=== PATIENT | female | born 1945 | race Caucasian/White ===

== ENCOUNTER 2018-01-16 20:01 | Inpatient (IN) | payer OTHER ==
[2018-01-16 20:05] VITALS: BMI 25.6
[2018-01-16 20:30] LABS: BASO % 0.5 % (0.0-2.0); EOS % 0.6 % (0.0-4.0); HEMOGLOBIN 14.5 g/dL (12.0-16.0); LYMPH # 1.3 K/uL (1.0-4.3); LYMPH % 17.6 % (20.0-40.0); MEAN CELL VOLUME 83.9 fl (81.0-99.0); MEAN CORPUSCULAR HEMOGLOBIN 28.2 pg (27.0-31.0); MEAN CORPUSCULAR HGB CONC 33.6 g/dL (33.0-37.0); MONO # 0.5 K/uL (0.0-0.8); MONO % 6.1 % (0.0-10.0); NEUT # 5.7 K/uL (1.8-7.0); NEUT % 75.2 % (50.0-75.0); RBC 5.12 Mil/uL (3.80-5.20); RED CELL DISTRIBUTION WIDTH 14.5 % (11.5-14.5); WHITE BLOOD COUNT 7.5 K/uL (4.8-10.8)
[2018-01-16 20:40] LABS: BLOOD UREA NITROGEN 14 mg/dl (7-17); CALCIUM 9.5 mg/dL (8.4-10.2); GFR AFRICAN-AMERICAN > 60; GFR NON-AFRICAN AMERICAN > 60
[2018-01-16 20:54] LABS: PROTHROMBIN TIME 11.3 Seconds (9.8-13.1)
--- NOTE | 2018-01-16 21:17 | ED PDOC ---
HPI: Trauma/Fall - HPI Time Seen by Provider: 01/16/18 20:03 Chief Complaint (Nursing): Trauma Chief Complaint (Provider): Fall History Per: Patient History/Exam Limitations: no limitations Injury Occurred (Timing): Just Before Arrival Associated Symptoms: denies: LOC Additional Complaint(s): 72yo female with history of dementia and hypertension, not currently on medication, presents to ED for evaluation s/p a mechanical fall. Patient states she was walking on the street, tripped and fell, landing on her left side and injuring her left hip. She denies any head injury or loss of consciousness. Past Medical History Reviewed: Historical Data, Nursing Documentation, Vital Signs Vital Signs: Last Vital Signs Temp 98.5 F 01/17/18 00:35 Pulse 90 01/17/18 03:15 Resp 18 01/17/18 03:15 BP 123/72 01/17/18 00:35 Pulse Ox 96 01/17/18 03:15 - Medical History PMH: Anxiety, HTN, Seizures Denies: Diabetes, Hepatitis, HIV, Chronic Kidney Disease, Sexually Transmitted Disease - Surgical History Surgical History: No Surg Hx - Family History Family History: States: No Known Family Hx - Immunization History Hx Tetanus Toxoid Vaccination: No Hx Influenza Vaccination: No Hx Pneumococcal Vaccination: No - Home Medications Home Medications: Ambulatory Orders Medication Instructions Recorded Amlodipine Besylate [Norvasc] 5 mg PO DAILY #30 tab 07/11/14 Aspirin [Ecotrin] 81 mg PO DAILY #30 ect 07/25/14 Venlafaxine [Effexor-XR] 37.5 mg PO BID #60 cer 08/20/14 - Allergies Allergies/Adverse Reactions: Allergies Allergy/AdvReac Type Severity Reaction Status Date / Time No Known Allergies Allergy Verified 07/09/14 22:10 Review of Systems ROS Statement: Except As Marked, All Systems Reviewed And Found Negative Musculoskeletal: Positive for: Other (left hip pain) Neurological: Negative for: Other (head injury, loss of consciousness) Physical Exam - Reviewed Nursing Documentation Reviewed: Yes Vital Signs Reviewed: Yes - Physical Exam Appears: Positive for: Non-toxic, In Acute Distress Head Exam: Positive for: ATRAUMATIC, NORMAL INSPECTION, NORMOCEPHALIC Skin: Positive for: Normal Color Eye Exam: Positive for: Normal appearance Neck: Positive for: Supple Cardiovascular/Chest: Positive for: Regular Rate, Rhythm Respiratory: Positive for: Normal Breath Sounds. Negative for: Respiratory Distress Pulses-Dorsalis Pedis (L): 1+ (diminished pulse in left lower extremity; able to hear pulse with doppler) Extremity: Positive for: Deformity (left leg shortnes and externally rotated. obvious deformity of left upper thigh. ), Other (no pelvic laxity) Neurologic/Psych: Positive for: Alert, Oriented (x 3), Other (patient able to wiggle toes and push down with her left foot; sensations intact in left lower extremity). Negative for: Motor/Sensory Deficits - Laboratory Results Result Diagrams: 01/16/18 20:17 01/16/18 20:17 - ECG O2 Sat by Pulse Oximetry: 97 (RA) Pulse Ox Interpretation: Normal Medical Decision Making Medical Decision Making: Impression: Hip fracture Plan: -- XR Hip -- XR Left Femur -- Chest x-ray -- Labs -- Morphine 2mg IVP Time: [address] Olson, orthopedist concrete bucket hooker who is requesting a CT of the hip. Patient admitted to FP service under Dr. Manriquez. Instructed resident to place [place] Traction on floor as we are not able to place traction on ED beds. Pt. stable upon admission. Scribe Attestation: Documented by Jojo Sosa acting as a scribe for Juwan Gardner MD. Provider Attestation: All medical record entries made by the Scribe were at my direction and personally dictated by me. I have reviewed the chart and agree that the record accurately reflects my personal performance of the history, physical exam, medical decision making, and the department course for this patient. I have also personally directed, reviewed, and agree with the discharge instructions and disposition. Disposition - Clinical Impression Clinical Impression: Hip fracture - Disposition Disposition Time: 21:29 Condition: STABLE
[2018-01-16 21:38] LABS: URINE BACTERIA RARE (<OCC); URINE BILIRUBIN NEGATIVE (NEGATIVE); URINE BLOOD NEGATIVE (NEGATIVE); URINE CLARITY CLOUDY (Clear); URINE COLOR AMBER (YELLOW); URINE GLUCOSE (UA) 50 mg/dL (Normal); URINE LEUKOCYTE ESTERASE NEG Leu/uL (Negative); URINE PROTEIN NEGATIVE (NEGATIVE); URINE UROBILINOGEN 0.2-1.0 mg/dL (0.2-1.0)
--- NOTE | 2018-01-16 22:49 | CP.PCM.HP ---
Addendum entered and electronically signed by Dayna Rouse MD 01/17/18 07: 15: Patient is a [employer]. Original Note: History of Present Illness - History of Present Illness History of Present Illness: 72 year old female presents s/p fall on left hip. She was walking around [address] with her , Marquis, whom she was holding on to when she misstepped and fell onto her left hip, after which she reports difficulty ambulating and pain of her hip with movement. She denies any previous fractures. No headaches, dizziness, changes in vision, loss of consciousness, chest pain, shortness of breath, nausea, vomiting, abdominal pain, pedal edema. She has full sensation below her left hip. She denies any past medical history. The patient is accompanied by her . PMD: Dr. Manriquez PMH: denies, as per chart: dementia, HTN Medications: Vitamins Allergies: NKDA Surgical HX: x 2 Code status: unable to assess, patient was unable to answer question. Marquis states patient is the decision maker, in the event that she cannot, he would be. Spoke with the Son, who believes he should be decision maker: [phone]. Present on Admission - Present on Admission Any Indicators Present on Admission: No Past Patient History - Past Medical History & Family History Past Medical History?: Yes - Past Social History Smoking Status: Never Smoked - CARDIAC Hx Hypertension: Yes - PULMONARY Hx Tuberculosis: No - NEUROLOGICAL Hx Seizures: Yes - HEENT Hx HEENT Problems: Yes Hx Glaucoma: Yes - RENAL Hx Chronic Kidney Disease: No - ENDOCRINE/METABOLIC Hx Endocrine Disorders: No - HEMATOLOGICAL/ONCOLOGICAL Hx Human Immunodeficiency Virus (HIV): No - INTEGUMENTARY Hx Dermatological Problems: No - MUSCULOSKELETAL/RHEUMATOLOGICAL Hx Falls: No - GASTROINTESTINAL Hx Gastrointestinal Disorders: No - GENITOURINARY/GYNECOLOGICAL Hx Sexually Transmitted Disorders: No - PSYCHIATRIC Hx Anxiety: Yes - SURGICAL HISTORY Hx Surgeries: No - ANESTHESIA Hx Anesthesia: Yes Hx Anesthesia Reactions: No Meds Allergies/Adverse Reactions: Allergies Allergy/AdvReac Type Severity Reaction Status Date / Time No Known Allergies Allergy Verified 07/09/14 22:10 Physical Exam - Constitutional Appears: Well, Non-toxic, No Acute Distress - Head Exam Head Exam: ATRAUMATIC, NORMAL INSPECTION, NORMOCEPHALIC - Eye Exam Eye Exam: EOMI, Normal appearance, PERRL - ENT Exam ENT Exam: Mucous Membranes Moist - Respiratory Exam Respiratory Exam: Clear to Auscultation Bilateral, NORMAL BREATHING PATTERN - Cardiovascular Exam Cardiovascular Exam: REGULAR RHYTHM, +S1, +S2 - GI/Abdominal Exam GI & Abdominal Exam: Normal Bowel Sounds, Soft. absent: Diminished Bowel Sounds , Distended, Guarding, Tenderness - Extremities Exam Extremities exam: Negative for: pedal edema Additional comments: left left abducted, externally rotated. tender to palpation at hip, no visible echymosis right pedal dp/pt pulses palpable. left pedal dp/pt pulses not palpable. - Neurological Exam Neurological exam: Alert, CN II-XII Intact - Psychiatric Exam Psychiatric exam: Normal Affect, Normal Mood - Skin Skin Exam: Dry, Intact, Normal Color, Warm Results - Vital Signs Recent Vital Signs: Last Vital Signs Temp 97.9 F 01/16/18 20:05 Pulse 90 01/16/18 22:09 Resp 14 01/16/18 22:09 BP 146/80 01/16/18 22:09 Pulse Ox 98 01/16/18 22:09 - Labs Result Diagrams: 01/16/18 20:17 01/16/18 20:17 Labs: Laboratory Results - last 24 hr 01/16/18 01/16/18 01/16/18 20:17 20:17 20:17 WBC 7.5 RBC 5.12 Hgb 14.5 Hct 43.0 MCV 83.9 D MCH 28.2 MCHC 33.6 RDW 14.5 Plt Count 282 MPV 9.0 Neut % (Auto) 75.2 H Lymph % (Auto) 17.6 L [place] % (Auto) 6.1 Eos % (Auto) 0.6 Baso % (Auto) 0.5 Neut # (Auto) 5.7 Lymph # (Auto) 1.3 [place] # (Auto) 0.5 Eos # (Auto) 0.0 Baso # (Auto) 0.0 PT 11.3 INR 1.0 APTT 30.0 Sodium 139 Potassium 4.1 Chloride 99 Carbon Dioxide 22 Anion Gap 22 H BUN 14 Creatinine 0.7 Est GFR ( Amer) > 60 Est GFR (Non-Af Amer) > 60 Random Glucose 154 H Calcium 9.5 Urine Color Urine Clarity Urine pH Ur Specific [place] Urine Protein Urine Glucose (UA) Urine Ketones Urine Blood Urine Nitrate Urine Bilirubin Urine Urobilinogen Ur Leukocyte Esterase Urine RBC (Auto) Urine Microscopic WBC Urine Bacteria Blood Type Antibody Screen BBK History Checked 01/16/18 01/16/18 20:17 21:15 WBC RBC Hgb Hct MCV MCH MCHC RDW Plt Count MPV Neut % (Auto) Lymph % (Auto) [place] % (Auto) Eos % (Auto) Baso % (Auto) Neut # (Auto) Lymph # (Auto) [place] # (Auto) Eos # (Auto) Baso # (Auto) PT INR APTT Sodium Potassium Chloride Carbon Dioxide Anion Gap BUN Creatinine Est GFR ( Amer) Est GFR (Non-Af Amer) Random Glucose Calcium Urine Color [place] Urine Clarity Cloudy Urine pH 6.0 Ur Specific [place] 1.019 Urine Protein Negative Urine Glucose (UA) 50 Urine Ketones Negative Urine Blood Negative Urine Nitrate Negative Urine Bilirubin Negative Urine Urobilinogen 0.2-1.0 Ur Leukocyte Esterase Neg Urine RBC (Auto) 5 H Urine Microscopic WBC 1 Urine Bacteria Rare Blood Type A POSITIVE Antibody Screen Negative BBK History Checked No verified bt Assessment & Plan (1) Hip fracture, left Assessment and Plan: 72 year old female with left hip fracture. She is pending CT scan, as per Dr. Olson. Dr. Gardner spoke with Dr. Olson. -She is to have [place] Traction applied. Vital signs within acceptable limits. Labs done in ED WNL. EKG done in ED, not read by cardio. CXR pending reading. Plan: -Pain control w. morphine -lovenox to start in AM unless otherwise indicated by ortho -scds for now -regular diet -leg CT Status: Acute
--- NOTE | 2018-01-17 00:31 | CT ---
EXAM: CT Left Lower Extremity Without Intravenous Contrast, Hip CLINICAL HISTORY: 72 years old, female; Injury or trauma; Fall; Initial encounter; Fracture, traumatic; Closed fracture; Hip; Left; Additional info: S/P fall TECHNIQUE: Axial computed tomography images of the left hip without intravenous contrast. All CT scans at this facility use one or more dose reduction techniques, viz.: automated exposure control; ma/kV adjustment per patient size (including targeted exams where dose is matched to indication; i.e. head); or iterative reconstruction technique. Coronal and sagittal reformatted images were created and reviewed. COMPARISON: No relevant prior studies available. FINDINGS: Bones/joints: Comminuted, displaced intertrochanteric fracture of LEFT femur. No dislocation. Soft tissues: Soft tissue swelling/stranding of adductor and thigh musculature. Vasculature: Mild atherosclerotic disease. Bladder: Ybarra catheter. Apparent mild bladder wall thickening. Collapsed bladder, limiting evaluation. Air within lumen. No stones. Reproductive: Coarse calcification within uterus compatible with fibroid. IMPRESSION: 1. LEFT proximal femur fracture. 2. Mild cystitis vs underdistention. Correlate with urinalysis. 3. Incidental/non-acute findings are described above.
[2018-01-17] MEDS ORDERED: Enoxaparin 40 mg Syringe SC SCH (09:00)
--- NOTE | 2018-01-17 09:14 | CP.PCM.CON ---
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 pt presents to ER with SEVERELY displaced, comminuted pathologuic(osteopenia) and pre-existiong osteoarthritis. Pt has hx of dmenetia, and has cognitive diffciutlies as well. pt admitted for medical/cardiologic stabilization, then ORIF vs endoprosthetic replacement for Markedly comminuted.pathologic, intertrochanteric fmeur fx with subtrochanteric element as well. NO PROMISES or guaranteesSituation is discussed at length with son Marquis, who is CULTURALLY COMPETETNT WALL TAPER Past Patient History - Past Medical History & Family History Past Medical History?: Yes - Past Social History Smoking Status: Never Smoked - CARDIAC Hx Hypertension: Yes - PULMONARY Hx Respiratory Disorders: No Hx Tuberculosis: No - NEUROLOGICAL Hx Seizures: Yes - HEENT Hx HEENT Problems: Yes Hx Glaucoma: Yes - RENAL Hx Chronic Kidney Disease: No - ENDOCRINE/METABOLIC Hx Endocrine Disorders: No - HEMATOLOGICAL/ONCOLOGICAL Hx Human Immunodeficiency Virus (HIV): No - INTEGUMENTARY Hx Dermatological Problems: No - MUSCULOSKELETAL/RHEUMATOLOGICAL Hx Musculoskeletal Disorders: No Hx Falls: No - GASTROINTESTINAL Hx Gastrointestinal Disorders: No - GENITOURINARY/GYNECOLOGICAL Hx Sexually Transmitted Disorders: No - PSYCHIATRIC Hx Anxiety: Yes - SURGICAL HISTORY Hx Surgeries: No - ANESTHESIA Hx Anesthesia: Yes Hx Anesthesia Reactions: No Meds Allergies/Adverse Reactions: Allergies Allergy/AdvReac Type Severity Reaction Status Date / Time No Known Allergies Allergy Verified 07/09/14 22:10 - Medications Medications: Current Medications Acetaminophen (Tylenol 325mg Tab) 975 mg PO Q6 PRN PRN Reason: Pain, moderate (4-7) Enoxaparin Sodium (Lovenox) 40 mg SC DAILY MARY PRN Reason: Protocol Physical Exam - Additional Findings Additional findings: Systemic exam as per Dr burkett/Baig Musculoskekltal stance/gait- defrred pt with shortherning/external rotation L lower extremity N/V intacct Bent tx applie Results - Vital Signs Recent Vital Signs: Last Vital Signs Temp 98.8 F 01/17/18 07:49 Pulse 108 H 01/17/18 07:49 Resp 18 01/17/18 07:49 BP 130/79 01/17/18 07:49 Pulse Ox 95 01/17/18 07:49 - Labs Result Diagrams: 01/16/18 20:17 01/16/18 20:17 Labs: Laboratory Results - last 24 hr 01/16/18 01/16/18 01/16/18 20:17 20:17 20:17 WBC 7.5 RBC 5.12 Hgb 14.5 Hct 43.0 MCV 83.9 D MCH 28.2 MCHC 33.6 RDW 14.5 Plt Count 282 MPV 9.0 Neut % (Auto) 75.2 H Lymph % (Auto) 17.6 L [place] % (Auto) 6.1 Eos % (Auto) 0.6 Baso % (Auto) 0.5 Neut # (Auto) 5.7 Lymph # (Auto) 1.3 [place] # (Auto) 0.5 Eos # (Auto) 0.0 Baso # (Auto) 0.0 PT 11.3 INR 1.0 APTT 30.0 Sodium 139 Potassium 4.1 Chloride 99 Carbon Dioxide 22 Anion Gap 22 H BUN 14 Creatinine 0.7 Est GFR ( Amer) > 60 Est GFR (Non-Af Amer) > 60 Random Glucose 154 H Calcium 9.5 Urine Color Urine Clarity Urine pH Ur Specific [place] Urine Protein Urine Glucose (UA) Urine Ketones Urine Blood Urine Nitrate Urine Bilirubin Urine Urobilinogen Ur Leukocyte Esterase Urine RBC (Auto) Urine Microscopic WBC Urine Bacteria Blood Type Antibody Screen BBK History Checked 01/16/18 01/16/18 20:17 21:15 WBC RBC Hgb Hct MCV MCH MCHC RDW Plt Count MPV Neut % (Auto) Lymph % (Auto) [place] % (Auto) Eos % (Auto) Baso % (Auto) Neut # (Auto) Lymph # (Auto) [place] # (Auto) Eos # (Auto) Baso # (Auto) PT INR APTT Sodium Potassium Chloride Carbon Dioxide Anion Gap BUN Creatinine Est GFR ( Amer) Est GFR (Non-Af Amer) Random Glucose Calcium Urine Color [place] Urine Clarity Cloudy Urine pH 6.0 Ur Specific [place] 1.019 Urine Protein Negative Urine Glucose (UA) 50 Urine Ketones Negative Urine Blood Negative Urine Nitrate Negative Urine Bilirubin Negative Urine Urobilinogen 0.2-1.0 Ur Leukocyte Esterase Neg Urine RBC (Auto) 5 H Urine Microscopic WBC 1 Urine Bacteria Rare Blood Type A POSITIVE Antibody Screen Negative BBK History Checked No verified bt - Impressions Impression: Xray- displaced/comminuted 4-5 part inter/sub trochateric fx l femmur CT- reveals more [id number] comminution/ path fx (osteopenia) and preexisting O/ A Assessment & Plan - Assessment and Plan (Free Text) Assessment: A- displaced/ sverly comminuted pathologic fx(osteopenia)/ with preexisting primary O/A L hip ( medial osteophyte/ sclerosis at sourcil- not read on initial xrays) P- because of pyts cognitive difficultie( senile dementia) and the nature of the fracture and bone, endoprosthetic L Hip replacement is best option in my opinion. Pt will NOT be able to control her weight bearing as with plate/sushila/ screws. Nature of bone for that procedure would be suspect as well Pt will immediately weight bear after hip replacemnt. 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 ALL POSSIBILITIES, INCLUDIONG DEATJH DISCUSSED, BRENNEN IF PT WILL NOT ACCEPT BLOOD TRANSFUSIONS
--- NOTE | 2018-01-17 12:05 | RAD ---
PROCEDURE: CHEST RADIOGRAPH, 1 VIEW HISTORY: s/p fall COMPARISON: 08/05/2013 FINDINGS: LUNGS: Elevation left hemidiaphragm consistent with eventration. There appears to be some mild left basilar atelectasis. PLEURA: No pneumothorax or pleural fluid seen. CARDIOVASCULAR: Normal. OSSEOUS STRUCTURES: No significant abnormalities. VISUALIZED UPPER ABDOMEN: Normal. OTHER FINDINGS: None. IMPRESSION: Mild left basilar atelectasis. Eventration left hemidiaphragm. The the the
--- NOTE | 2018-01-17 12:25 | RAD ---
PROCEDURE: Left femur dated 01/16/2018. Three views of the left femur performed. HISTORY: Status post fall. COMPARISON: Comparison made with concurrent radiographs pelvis and left hip. Correlation also made with CT scan abdomen pelvis dated 12/24/2013 TECHNIQUE: Three views of the left femur performed FINDINGS: Current study reveals a comminuted intertrochanteric fracture of the left femur with superior distraction-displacement of the proximal aspect distal fragment left femoral shaft with marked varus angulation. The left femoral head is appropriately located within the left acetabulum. Elliptical shaped coarse calcified fibroid in the overlying left lateral lower true pelvis unchanged IMPRESSION: Comminuted tech intertrochanteric fracture of the left femur with superior distraction-displacement of the proximal aspect distal fragment left femoral shaft with marked varus angulation
--- NOTE | 2018-01-17 12:28 | RAD ---
PROCEDURE: Left Hip X-ray Radiographs. HISTORY: obvious deformity s/p fall COMPARISON: Correlation made with concurrent radiographs of the left femur. Correlation also made with prior radiographs of the pelvis 01/03/2014. Comparison also made with CT scan of the abdomen pelvis dated 01/03/2014 FINDINGS: BONES: Re- demonstrated is a comminuted intertrochanteric fracture of the left femur with superior distraction-displacement of the proximal aspect distal fragment left femoral shaft with marked varus angulation JOINTS: Joint spaces are preserved. SOFT TISSUES: Coarse elliptical shaped calcified uterine fibroid overlying left lateral pelvis OTHER FINDINGS: None. IMPRESSION: Comminuted intertrochanteric fracture left femur with superior distraction - displacement of the proximal aspect distal fragment left femoral shaft with marked varus angulation deformity.
--- NOTE | 2018-01-17 12:40 | CP.PCM.PN ---
Subjective - Date & Time of Evaluation Date of Evaluation: 01/17/18 Time of Evaluation: 08:30 - Subjective Subjective: Pt seen and evaluated this morning, sitting in bed with patel's traction applied to left lower extremity. Family, and son at bedside. Pt is s/p fall with extensive hip fracture; was seen by ortho and surgery recommended. However , she is a Sabianist, and stated opposition to blood products and risks , including but not limited to . After a lengthy discussion about the risks, pt stated "I want to live," and that she wanted to think about blood transfusion. Later, medical team was called, told that pt stated she was agreeable to blood transfusion, but when she was seen again at bedside for consent, she stated "I don't want blood." Pt's son states that his mother has issues with her memory and that she "just said she would do it, she forgets conversations fast." Family is unclear at the moment as to who is the healthcare proxy and whether the pt can make her own decisions with her current mental state. Objective - Vital Signs/Intake and Output Vital Signs (last 24 hours): Temp Pulse Resp BP Pulse Ox 98.8 F 108 H 18 130/79 95 01/17/18 07:49 01/17/18 07:49 01/17/18 07:49 01/17/18 07:49 01/17/18 07:49 - Medications Medications: Current Medications Acetaminophen (Tylenol 325mg Tab) 975 mg PO Q6 PRN PRN Reason: Pain, moderate (4-7) Last Admin: 01/17/18 09:28 Dose: 975 mg Morphine Sulfate (Morphine) 1 mg IVP Q4 PRN PRN Reason: Pain, severe (8-10) - Labs Labs: 01/16/18 20:17 01/16/18 20:17 PT 11.3 Seconds (9.8-13.1) 01/16/18 20:17 INR 1.0 (0.9-1.2) 01/16/18 20:17 APTT 30.0 Seconds (25.6-37.1) 01/16/18 20:17 - Constitutional Appears: Non-toxic, No Acute Distress - Head Exam Head Exam: NORMAL INSPECTION - Eye Exam Eye Exam: Normal appearance - ENT Exam ENT Exam: Mucous Membranes Moist - Respiratory Exam Respiratory Exam: Clear to Ausculation Bilateral, NORMAL BREATHING PATTERN - Cardiovascular Exam Cardiovascular Exam: REGULAR RHYTHM, +S1, +S2 - GI/Abdominal Exam GI & Abdominal Exam: Soft, Normal Bowel Sounds - Extremities Exam Extremities Exam: absent: Calf Tenderness, Pedal Edema Additional comments: LLE in Patel's traction - Neurological Exam Neurological Exam: Alert, Awake Additional comments: forgetful - Skin Skin Exam: Dry, Warm Assessment and Plan - Assessment and Plan (Free Text) Assessment: 72 yo F with left hip fracture. Plan: # Left hip fracture - seen by ortho Dr. Olson - pt is Sabianist; stance on blood products unclear due to pt changing her mind, and forgetfulness of past conversations - pain control w/ 975 mg Q6 PRN acetaminophen for moderate pain - morphine 1 mg IVP Q4 PRN for severe pain - cardiology clearance, consult placed for Dr. Guillen # Dementia - psychiatry consult to establish capacity for decision making regarding blood products - pastoral care and social work referrals to establish health care proxy: son vs vs other? - TSH, folate, B12, RPR # Diet - Regular for now - NPO after midnight with IV fluids for possible surgery tomorrow # DVT prophylaxis - received lovenox 40 mg SC today; holding for tomorrow am
--- NOTE | 2018-01-17 13:12 | CP.PCM.CON ---
History of Present Illness - History of Present Illness History of Present Illness: consult requested to assess capacity of pt to make decision in reference to receiving blood transfusion if needed while being operated on for hip fracture 72 year old female presents s/p fall on left hip. She was walking around [address] with her , Marquis, whom she was holding on to when she misstepped and fell onto her left hip, after which she reports difficulty ambulating and pain of her hip with movement. pt does not speak hong konger and interview conducted with [employer] interpretation services Interview conducted in the presence of pt son, and daughter in law as per pt request and consent pt has no prior history of formal psychiatric diagnosis treatment or hospitalization, As per her son pt for past few years, unable to specify has been forgetful, unable to remember recent conversations at times, may not remember some important events or birthdays, and as per him the memory difficulties fluctuates through out the day, pt currently lives in [place] with her and also her daughter lives in [place] and she has a supportive family Pt on evaluation was initially anxious about the interview but as I continued to explain to her my role and the reason I was asked to evaluate her she gradually was more at ease and cooperative when I asked the pt if she remembers the events that let to her presence in the hospital she said it is because she tripped yesterday and fell I asked the pt if she understand the nature of her injury she was unable to explain that, I asked her if she was aware that surgey may be needed she said she does not remember that any physician explained that to her and she added that she does not agree to have surgery, pt was unable to explain the nature of the surgery she may need and was unable to verbalize any risks versus benefits of having the surgery OR the possible consequences of not having it I asked the pt in the event if she decided to have the surgery if she agrees to have blood transfusion if needed pt completely refused I explained to the pt that if she refuses blood transfusion if needed that may have a risk of endangering her well being, then further questioned her about her decision , pt continued to be unable to explain the risks versus benifits of having the blood transfusion and the possible consequences if not having it if needed pt on evaluation was oriented to person and partialy to place only stated she is in a hospital but unable to provide the name, stated the month is june the year is 1980, was unable to name the current or previous presidents indicated the current season may be spring and does not know what would be the upcoming holiday Past Patient History - Past Medical History & Family History Past Medical History?: Yes - Past Social History Smoking Status: Never Smoked - CARDIAC Hx Hypertension: Yes - PULMONARY Hx Respiratory Disorders: No Hx Tuberculosis: No - NEUROLOGICAL Hx Seizures: Yes - HEENT Hx HEENT Problems: Yes Hx Glaucoma: Yes - RENAL Hx Chronic Kidney Disease: No - ENDOCRINE/METABOLIC Hx Endocrine Disorders: No - HEMATOLOGICAL/ONCOLOGICAL Hx Human Immunodeficiency Virus (HIV): No - INTEGUMENTARY Hx Dermatological Problems: No - MUSCULOSKELETAL/RHEUMATOLOGICAL Hx Musculoskeletal Disorders: No Hx Falls: No - GASTROINTESTINAL Hx Gastrointestinal Disorders: No - GENITOURINARY/GYNECOLOGICAL Hx Sexually Transmitted Disorders: No - PSYCHIATRIC Hx Anxiety: Yes - SURGICAL HISTORY Hx Surgeries: No - ANESTHESIA Hx Anesthesia: Yes Hx Anesthesia Reactions: No Meds Allergies/Adverse Reactions: Allergies Allergy/AdvReac Type Severity Reaction Status Date / Time No Known Allergies Allergy Verified 07/09/14 22:10 - Medications Medications: Current Medications Acetaminophen (Tylenol 325mg Tab) 975 mg PO Q6 PRN PRN Reason: Pain, moderate (4-7) Last Admin: 01/17/18 09:28 Dose: 975 mg Morphine Sulfate (Morphine) 1 mg IVP Q4 PRN PRN Reason: Pain, severe (8-10) Physical Exam - Skin Additional comments: pt seen in bed dressed in hospital gown, initially anxious but calmer as the interviw continued, good eye contact,speech soft, mood eported fine, affect appropriate thought form circumstantial, denied any current suicidal or homicidal ideations denied perceptual disturbances, non elicited alert awake oriented to person and partially to place Results - Vital Signs Recent Vital Signs: Last Vital Signs Temp 98.8 F 01/17/18 07:49 Pulse 108 H 01/17/18 07:49 Resp 18 01/17/18 07:49 BP 130/79 01/17/18 07:49 Pulse Ox 95 01/17/18 07:49 - Labs Result Diagrams: 01/16/18 20:17 01/16/18 20:17 Labs: Laboratory Results - last 24 hr 01/16/18 01/16/18 01/16/18 20:17 20:17 20:17 WBC 7.5 RBC 5.12 Hgb 14.5 Hct 43.0 MCV 83.9 D MCH 28.2 MCHC 33.6 RDW 14.5 Plt Count 282 MPV 9.0 Neut % (Auto) 75.2 H Lymph % (Auto) 17.6 L Graves % (Auto) 6.1 Eos % (Auto) 0.6 Baso % (Auto) 0.5 Neut # (Auto) 5.7 Lymph # (Auto) 1.3 Graves # (Auto) 0.5 Eos # (Auto) 0.0 Baso # (Auto) 0.0 PT 11.3 INR 1.0 APTT 30.0 Sodium 139 Potassium 4.1 Chloride 99 Carbon Dioxide 22 Anion Gap 22 H BUN 14 Creatinine 0.7 Est GFR ( Amer) > 60 Est GFR (Non-Af Amer) > 60 Random Glucose 154 H Calcium 9.5 Urine Color Urine Clarity Urine pH Ur Specific [place] Urine Protein Urine Glucose (UA) Urine Ketones Urine Blood Urine Nitrate Urine Bilirubin Urine Urobilinogen Ur Leukocyte Esterase Urine RBC (Auto) Urine Microscopic WBC Urine Bacteria Blood Type Antibody Screen BBK History Checked 01/16/18 01/16/18 20:17 21:15 WBC RBC Hgb Hct MCV MCH MCHC RDW Plt Count MPV Neut % (Auto) Lymph % (Auto) Graves % (Auto) Eos % (Auto) Baso % (Auto) Neut # (Auto) Lymph # (Auto) Graves # (Auto) Eos # (Auto) Baso # (Auto) PT INR APTT Sodium Potassium Chloride Carbon Dioxide Anion Gap BUN Creatinine Est GFR ( Amer) Est GFR (Non-Af Amer) Random Glucose Calcium Urine Color Clar[place] Urine Clarity Cloudy Urine pH 6.0 Ur Specific [place] 1.019 Urine Protein Negative Urine Glucose (UA) 50 Urine Ketones Negative Urine Blood Negative Urine Nitrate Negative Urine Bilirubin Negative Urine Urobilinogen 0.2-1.0 Ur Leukocyte Esterase Neg Urine RBC (Auto) 5 H Urine Microscopic WBC 1 Urine Bacteria Rare Blood Type A POSITIVE Antibody Screen Negative BBK History Checked No verified bt Assessment & Plan - Assessment and Plan (Free Text) Assessment: Dementia mild to moderate Plan: pt at current mental status unable to verbalize the nature of the procedure required/ possible surgery and bllod transfusion unable to explain risks or benefits unable to explain possible consequences of not having it pt at current mental status does not have the capacity to make the decision in the are of having a surgery or having a blood transfusion
[2018-01-17] MEDS ORDERED: Lactated Ringer's 1,000 ML IV SCH (22:45)
[2018-01-18 07:06] LABS: BLOOD UREA NITROGEN 13 mg/dl (7-17); CALCIUM 8.3 mg/dL (8.4-10.2); GFR AFRICAN-AMERICAN > 60; GFR NON-AFRICAN AMERICAN > 60
[2018-01-18 07:07] LABS: HEMOGLOBIN 10.4 g/dL (12.0-16.0); MEAN CELL VOLUME 83.7 fl (81.0-99.0); MEAN CORPUSCULAR HEMOGLOBIN 28.4 pg (27.0-31.0); MEAN CORPUSCULAR HGB CONC 33.9 g/dL (33.0-37.0); RBC 3.65 Mil/uL (3.80-5.20); RED CELL DISTRIBUTION WIDTH 14.1 % (11.5-14.5); WHITE BLOOD COUNT 8.4 K/uL (4.8-10.8)
--- NOTE | 2018-01-18 09:30 | CARD ---
APPROVED REPORT EXAM: Two-dimensional and M-mode echocardiogram with Doppler and color Doppler. Other Information Quality : AverageRhythm : NSR Technically limited study due to Limited Window INDICATION Pre-Op 2D DIMENSIONS IVSd0.75 (0.7-1.1cm)LVDd2.53 (3.9-5.9cm) PWd0.48 (0.7-1.1cm)IVSs0.85 (0.8-1.2cm) LVDs2.13 (2.5-4.0cm)FS (%) 15.7 % PWs0.66 (0.8-1.2cm) Mitral Valve MV E Ygbziehh06.1cm/sMV DECEL [id number] A Msxfcwwt01.9cm/s MV JGX98cmX/A ratio0.5MVA (PHT)4.63cm2 TDI Lateral E' Peak V5.79cm/sMedial E' Peak V4.24cm/sE/Lateral E'8.5 E/Medial E'11.6 LEFT VENTRICLE The left ventricle is normal size. There is mild concentric left ventricular hypertrophy. Left ventricle systolic function is normal. The Ejection Fraction is 60-65%. Basal half of inferior/lateral wall was mild/mod hypokinetic Other LV wall segments contracted normally Transmitral Doppler flow pattern is Grade I-abnormal relaxation pattern. RIGHT VENTRICLE The right ventricle is normal size. There is normal right ventricular wall thickness. The right ventricular systolic function is normal. ATRIA The left atrium size is normal. The right atrium size is normal. AORTIC VALVE The aortic valve is mildly sclerotic. There is mild aortic regurgitation. There is no aortic valvular stenosis. MITRAL VALVE The mitral valve is normal in structure. There is no evidence of mitral valve prolapse. There is no mitral valve stenosis. There is no mitral valve regurgitation noted. TRICUSPID VALVE The tricuspid valve is normal in structure. There is no tricuspid valve regurgitation noted. PULMONIC VALVE The pulmonary valve is normal in structure. There is no pulmonic valvular regurgitation. GREAT VESSELS The aortic root is normal in size. The IVC is normal in size and collapses >50% with inspiration. PERICARDIAL EFFUSION The pericardium appears normal. <Conclusion> Because of the orientation of heart in the chest cavity, M-mode study could not be done. The left ventricle is normal size. There is mild concentric left ventricular hypertrophy. Basal half of inferior/lateral wall was mild/mod hypokinetic Other LV wall segments contracted normally Left ventricle systolic function is normal. The Ejection Fraction is 60-65%. Transmitral Doppler flow pattern is Grade I-abnormal relaxation pattern.
[2018-01-18] MEDS ORDERED: Lactated Ringer's 1,000 ML IV SCH ×2 (09:33→21:17)
--- NOTE | 2018-01-18 09:37 | CP.PCM.CON ---
History of Present Illness - History of Present Illness History of Present Illness: This 72-year-old female, a hypertensive came to the emergency room when following a fall she complained of severe left hip pain and was found to have a fractured femoral neck. The patient has been on antihypertensives for number of years. Otherwise there is no history of chest pains or symptoms of congestive cardiac failure. She did not have any effort related dyspnea but, her physical activity is was significantly curtailed and the patient did not walk extensively. There is no history of orthopnea or pedal edema. The patient is not a smoker or diabetic. She has mild cognitive deficit. This consultation was requested to evaluate the patient for her suitability to undergo surgical correction of the fractured femur. The patient's son and were interviewed because the patient could not provide adequate details of her medical history. Physical examination shows a thin built elderly female who is lying comfortably in bed breathes at 14-16 breaths per minutes. She is a heart rate of 74 bpm and regular and her blood pressure was 136/74 mmHg. Her jugular venous pressure was not elevated. There was no edema over lower extremities. The pedal pulses were feeble but present. There were no carotid bruits. The apex was not palpable. The first and second heart sounds were normal. There was no murmur or gallop there were no rales. Her abdomen was soft liver and spleen are not palpable. Her electrocardiogram showed sinus rhythm with Q waves in lead 1 and aVL and narrow Q waves in V3 V4 V5 and V6. There were T-wave inversions in V2 and V3. The pattern was seen on earlier electrocardiograms of 2013 as well. An echocardiogram done today shows mildly hypokinetic segment located in the inferolateral region of the left ventricle. The overall left ventricular systolic function was preserved. There was no significant valvulopathy, a mild degree of aortic regurgitation was present. Her lab data shows her hemoglobin has gone from 14.4 to10.5 g., Probably due to intravenous fluids and bleeding at the fracture site. Her BUN and creatinine were normal and her TSH was normal. Impression: Fractured left femer, history of hypertension. 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 Her left ventricular systolic function as documented by her echocardiogram is well preserved. The patient is medically stable to proceed with the planned surgery. Past Patient History - Past Medical History & Family History Past Medical History?: Yes - Past Social History Smoking Status: Never Smoked - CARDIAC Hx Hypertension: Yes - PULMONARY Hx Respiratory Disorders: No Hx Tuberculosis: No - NEUROLOGICAL Hx Seizures: Yes - HEENT Hx HEENT Problems: Yes Hx Glaucoma: Yes - RENAL Hx Chronic Kidney Disease: No - ENDOCRINE/METABOLIC Hx Endocrine Disorders: No - HEMATOLOGICAL/ONCOLOGICAL Hx Human Immunodeficiency Virus (HIV): No - INTEGUMENTARY Hx Dermatological Problems: No - MUSCULOSKELETAL/RHEUMATOLOGICAL Hx Musculoskeletal Disorders: No Hx Falls: No - GASTROINTESTINAL Hx Gastrointestinal Disorders: No - GENITOURINARY/GYNECOLOGICAL Hx Sexually Transmitted Disorders: No - PSYCHIATRIC Hx Anxiety: Yes - SURGICAL HISTORY Hx Surgeries: No - ANESTHESIA Hx Anesthesia: Yes Hx Anesthesia Reactions: No Meds Allergies/Adverse Reactions: Allergies Allergy/AdvReac Type Severity Reaction Status Date / Time No Known Allergies Allergy Verified 07/09/14 22:10 - Medications Medications: Current Medications Acetaminophen (Tylenol 325mg Tab) 975 mg PO Q6 PRN PRN Reason: Pain, moderate (4-7) Last Admin: 01/17/18 16:06 Dose: 975 mg Lactated Ringer's (Lactated Ringer's) 1,000 mls @ 50 mls/hr IV .Q20H MARY Morphine Sulfate (Morphine) 1 mg IVP Q4 PRN PRN Reason: Pain, severe (8-10) Results - Vital Signs Recent Vital Signs: Last Vital Signs Temp 98.3 F 01/18/18 07:54 Pulse 87 01/18/18 07:54 Resp 18 01/18/18 07:54 BP 127/72 01/18/18 07:54 Pulse Ox 95 01/18/18 07:54 - Labs Result Diagrams: 01/18/18 05:45 01/18/18 05:45 Labs: Laboratory Results - last 24 hr 01/18/18 01/18/18 05:45 05:45 WBC 8.4 RBC 3.65 L Hgb 10.4 L D Hct 30.6 L MCV 83.7 MCH 28.4 MCHC 33.9 RDW 14.1 Plt Count 197 Sodium 131 L Potassium 4.6 Chloride 94 L Carbon Dioxide 27 Anion Gap 15 BUN 13 Creatinine 0.7 Est GFR ( Amer) > 60 Est GFR (Non-Af Amer) > 60 Random Glucose 106 H Calcium 8.3 L Vitamin B12 509 TSH 3rd Generation 2.11
--- NOTE | 2018-01-18 09:55 | CP.PCM.PCO ---
Addendum Addendum: Pt's son arrived today and wanted to speak with nurse assistant center manager regarding his mother and decision making for her.
--- NOTE | 2018-01-18 12:14 | CARD ---
APPROVED REPORT EKG Measurement Heart [id number] <Conclusion> Normal sinus rhythm Biatrial enlargement Anterolateral infarct, age undetermined Abnormal ECG
[2018-01-18] MEDS ORDERED: Succinylcholine 200 mg/10 ml Inj IV ONE (13:02)
[2018-01-18] MEDS ORDERED: Etomidate 20 mg/10ml Inj IV ONE (13:02)
[2018-01-18] MEDS ORDERED: Rocuronium 10 mg/ml (5 ml) ONE ×2 (13:02→15:28)
[2018-01-18] MEDS ORDERED: Bacitracin Ointment 30 GM TUBE ONE (13:27)
[2018-01-18] MEDS ORDERED: Absorbable Gelatin Sponge Size 100 ONE (13:27)
[2018-01-18] MEDS ORDERED: Thrombin Topical 5,000 Int Units Spray Kit ONE (13:27)
[2018-01-18] MEDS ORDERED: Sodium Chloride 0.9% 1,000 ML IV ONE ×2 (14:10→18:30)
[2018-01-18] MEDS ORDERED: Lactated Ringer's 1,000 ML IV ONE (14:10)
[2018-01-18] MEDS ORDERED: Morphine 1 mg/ml preservative-free Inj(Duramorph) ONE (14:19)
[2018-01-18] MEDS ORDERED: Sodium Chloride 0.9% 500 ML IV ONE ×2 (14:20)
[2018-01-18] MEDS ORDERED: ePHEDrine 50 mg/ml Inj ONE (15:06)
[2018-01-18] MEDS ORDERED: Phenylephrine 10 mg/ml Inj ONE (16:05)
[2018-01-18] MEDS ORDERED: Neostigmine 1:1000 (1 mg/ml) Inj ONE (17:05)
[2018-01-18 17:08] LABS: FOLATE 17.2 ng/mL
[2018-01-18] MEDS ORDERED: Thrombin Topical 5,000 Int Units Spray Kit TOP ONE (17:40)
[2018-01-18] MEDS ORDERED: Absorbable Gelatin Sponge Size 100 TP ONE (17:40)
--- NOTE | 2018-01-18 18:16 | CP.PCM.PN ---
<Ngozi Devi - Last Filed: 01/18/18 18:29> Subjective - Date & Time of Evaluation Date of Evaluation: 01/18/18 Time of Evaluation: 07:20 - Subjective Subjective: Patient was seen and evaluated at bedside this am, at 7:20 am; no acute events overnight. Pt was laying comfortably in bed, in no acute distress. Family has decided that son who is at bedside will be the decision maker for his mother. Objective - Vital Signs/Intake and Output Vital Signs (last 24 hours): Temp Pulse Resp BP Pulse Ox 98.3 F 87 18 127/72 95 01/18/18 07:54 01/18/18 07:54 01/18/18 07:54 01/18/18 07:54 01/18/18 07:54 Intake and Output: 01/18/18 01/18/18 06:59 18:59 Intake Total 1550 Balance 1550 - Medications Medications: Current Medications Acetaminophen (Tylenol 325mg Tab) 975 mg PO Q6 PRN PRN Reason: Pain, moderate (4-7) Last Admin: 01/17/18 16:06 Dose: 975 mg Albuterol/Ipratropium (Duoneb 3 Mg/0.5 Mg (3 Ml) Ud) 3 ml INH RTID MARY Lactated Ringer's (Lactated Ringer's) 1,000 mls @ 50 mls/hr IV .Q20H MARY Last Admin: 01/18/18 10:06 Dose: 50 mls/hr Morphine Sulfate (Morphine) 1 mg IVP Q4 PRN PRN Reason: Pain, severe (8-10) - Labs Labs: 01/18/18 05:45 01/18/18 05:45 PT 11.3 Seconds (9.8-13.1) 01/16/18 20:17 INR 1.0 (0.9-1.2) 01/16/18 20:17 APTT 30.0 Seconds (25.6-37.1) 01/16/18 20:17 - Constitutional Appears: Non-toxic, No Acute Distress - Head Exam Head Exam: NORMAL INSPECTION - Eye Exam Eye Exam: Normal appearance - ENT Exam ENT Exam: Mucous Membranes Moist - Respiratory Exam Respiratory Exam: Wheezes, NORMAL BREATHING PATTERN. absent: Respiratory Distress - Cardiovascular Exam Cardiovascular Exam: REGULAR RHYTHM, +S1, +S2 - GI/Abdominal Exam GI & Abdominal Exam: Soft, Normal Bowel Sounds - Extremities Exam Additional comments: left lower extremity in Patel's traction - Neurological Exam Neurological Exam: Alert, Awake - Psychiatric Exam Psychiatric exam: Normal Mood - Skin Skin Exam: Dry, Intact, Normal Color Assessment and Plan - Assessment and Plan (Free Text) Assessment: 72 yo F with left hip fracture; currently in Patel's traction. Awaiting pending surgery. Pt does not have capacity to make decisions and her son who is at bedside and have decided that her son who is at bedside will make decisions for her. Plan: # Left hip fracture - seen by ortho Dr. Olson - pain control w/ 975 mg Q6 PRN acetaminophen for moderate pain - morphine 1 mg IVP Q4 PRN for severe pain - cardiology clearance, consult placed for Dr. Guillen - cleared from cardiology for surgery # Dementia - psychiatry consult- pt does not have decision making capacity - son is healthcare decision maker; pt's and son agree; pt's son and both in agreement to consent to blood products, son signed for consent - TSH, folate, B12 all wnl; RPR # Wheezing on physical exam - asymptomatic - duoneb treatments TID # Diet - npo for surgery today # DVT prophylaxis - held this am for pending surgery <Norm Estrada - Last Filed: 01/21/18 09:36> Objective - Vital Signs/Intake and Output Vital Signs (last 24 hours): Temp Pulse Resp BP Pulse Ox 97.9 F 96 H 18 115/63 96 01/21/18 07:29 01/21/18 07:29 01/21/18 07:29 01/21/18 07:29 01/21/18 07:29 - Medications Medications: Current Medications Acetaminophen (Tylenol 325mg Tab) 975 mg PO Q8@0500,1300,2100 [facility] Last Admin: 01/21/18 05:09 Dose: Not Given Docusate Sodium (Colace) 100 mg PO DAILY [facility] Last Admin: 01/21/18 08:24 Dose: 100 mg Famotidine (Pepcid) 20 mg PO DAILY [facility] Last Admin: 01/21/18 08:25 Dose: 20 mg Heparin Sodium (Porcine) (Heparin) 5,000 units SC Q8 [facility] PRN Reason: Protocol Last Admin: 01/21/18 08:25 Dose: 5,000 units Iron Sucrose 200 mg/ Sodium (Chloride) 110 mls @ 110 mls/hr IVPB DAILY MARY Stop: 01/24/18 09:59 Last Admin: 01/20/18 16:35 Dose: 110 mls/hr Ketorolac Tromethamine (Toradol) 15 mg IVP Q6 MARY Last Admin: 01/21/18 03:57 Dose: 15 mg Tamsulosin HCl (Flomax) 0.4 mg PO ONCE MARY Last Admin: 01/20/18 21:35 Dose: 0.4 mg - Labs Labs: 01/21/18 04:30 01/21/18 04:30 PT 11.3 Seconds (9.8-13.1) 01/16/18 20:17 INR 1.0 (0.9-1.2) 01/16/18 20:17 APTT 30.0 Seconds (25.6-37.1) 01/16/18 20:17 Attending/Attestation - Attestation I have personally seen and examined this patient.: Yes I have fully participated in the care of the patient.: Yes I have reviewed all pertinent clinical information, including history, physical exam and plan: Yes
--- NOTE | 2018-01-18 18:29 | PCM.SURG1 ---
Surgeon's Initial Post Op Note - Surgeon's Notes Surgeon: Whitney Stuffer: 1st assistElan/ 2nd assist gen Nas surg resident Type of Anesthesia: General Endo, Spinal Anesthesia Administered By: Dr Johnson Pre-Operative Diagnosis: Displaced/comminuted intertriochanteric/ subtrochanteric fx/primary O/A L hip. \Fx greater trochanter Operative Findings: as above Post-Operative Diagnosis: displaced/commionuted intertrochanteric/ subtrochanteric L femur fx. Primary o/A L hip Operation Performed: L THR. orif interotchanteric fx. ORIF greater trochanteric fx. release iliopsoas. auograft bone graft. computer navigation Specimen/Specimens Removed: fx/synovium/tendon Estimated Blood Loss: EBL {In ML}: 600 Blood Products Given: N/A Drains Used: No Drains Post-Op Condition: Fair Date of Surgery/Procedure: 01/18/18 Time of Surgery/Procedure: 15:30 (time in room/aneatshesia induction time 1410)
--- NOTE | 2018-01-18 18:55 | CP.CCUPN ---
CCU Subjective - Physician Review Subjective (Free Text): 01/18/18 19:04 The patient was Seen/interviewed and examined by me at the bedside in the recovery room, Medical records reviewed and Management issues were discussed and formulated with the house staff. Events reviewed 72 Years old Female with PMHx of Anxiety, HTN, Seizures and dementia Who presents to Emergency department on 01/16 s/p a mechanical fall. Patient sustained left hip fracture, evaluated by orthp, [place] Traction applied. Pre-operative ECHO done showed left ventricular systolic function by echocardiogram is well preserved. Today she underwent L THR. ORIF interotchanteric fx. ORIF greater trochanteric fx. Procedure done under Spinal Anesthesia, Patient was successfully extubated Patient curremtly in PACU, On my initial evaluation she was lethargic and minimally responsive however starting to walk up, hemodynamically stable, denies any chest pain or SOB CCU Objective - Vital Signs / Intake & Output Intake and Output (Last 8hrs): Intake & Output 01/18/18 01/18/18 01/18/18 06:59 14:59 22:59 Intake Total 1425 125 Balance 1425 125 Intake: IV 1100 Blood Product 325 125 - Physical Exam Physical Exam Limitations: Positive for: Altered Mental Status, Clinical Condition Head: Positive for: Atraumatic, Normocephalic. Negative for: Tenderness, Contusion Pupils: Positive for: Sluggish Extroacular Muscles: Positive for: EOMI Conjunctiva: Positive for: Normal. Negative for: Injected, Icteric Mouth: Positive for: Moist Mucous Membranes Nose (Internal): Positive for: Normal Inspection Neck: Positive for: Normal Range of Motion, Trachea Midline. Negative for: JVD , Lymphadenopathy, Bruit Respiratory/Chest: Positive for: Good Air Exchange, Decreased Breath Sounds, Retracting. Negative for: Respiratory Distress, Accessory Muscle Use Cardiovascular: Positive for: Regular Rate and Rhythm, Normal S1, S2, Peripheal Pulses Present. Negative for: Murmurs, Tachycardic, Bradycardic Abdomen: Positive for: Normal Bowel Sounds. Negative for: Tenderness, Distention Psychiatric: Positive for: Alert - Medications Active Medications: Active Medications Generic Name Dose Route Start Last Admin Trade Name Freq PRN Reason Stop Dose Admin Acetaminophen 975 mg 01/17/18 07:20 01/17/18 16:06 Tylenol 325mg Tab PO 975 mg Q6 PRN Administration Pain, moderate (4-7) Albuterol/Ipratropium 3 ml 01/18/18 20:00 Duoneb 3 Mg/0.5 Mg (3 Ml) Ud INH RTID MARY Lactated Ringer's 1,000 mls @ 50 mls/hr 01/18/18 09:33 01/18/18 10:06 Lactated Ringer's IV 50 mls/hr .Q20H MARY Administration Cefazolin Sodium 1 gm/ Sodium 100 mls @ 100 mls/hr 01/19/18 01:00 Chloride IVPB 01/19/18 09:59 Q8 MARY Protocol Morphine Sulfate 1 mg 01/17/18 11:10 Morphine IVP Q4 PRN Pain, severe (8-10) Morphine Sulfate 1 mg 01/18/18 18:34 Morphine IVP 01/18/18 20:35 Q10M PRN Pain, severe (8-10) - Patient Studies Lab Studies: Lab Studies 01/18/18 01/18/18 01/18/18 Range/Units 05:45 05:45 05:45 WBC 8.4 (4.8-10.8) K/uL RBC 3.65 L (3.80-5.20) Mil/uL Hgb 10.4 L D (12.0-16.0) g/dL Hct 30.6 L (34.0-47.0) % MCV 83.7 (81.0-99.0) fl MCH 28.4 (27.0-31.0) pg MCHC 33.9 (33.0-37.0) g/dL RDW 14.1 (11.5-14.5) % Plt Count 197 (130-400) K/uL Sodium 131 L (132-148) mmol/l Potassium 4.6 (3.6-5.0) MMOL/L Chloride 94 L (98-107) mmol/L Carbon Dioxide 27 (22-30) mmol/L Anion Gap 15 (10-20) BUN 13 (7-17) mg/dl Creatinine 0.7 (0.7-1.2) mg/dl Est GFR ( Amer) > 60 Est GFR (Non-Af Amer) > 60 Random Glucose 106 H (65-105) mg/dL Calcium 8.3 L (8.4-10.2) mg/dL Vitamin B12 509 (239-931) pg/mL Folate 17.2 ng/mL TSH 3rd Generation 2.11 (0.46-4.68) mIU/ML RPR Nonreactive (NONREACTIVE) Blood Type Antibody Screen Crossmatch BBK History Checked 01/16/18 Range/Units 20:17 WBC (4.8-10.8) K/uL RBC (3.80-5.20) Mil/uL Hgb (12.0-16.0) g/dL Hct (34.0-47.0) % MCV (81.0-99.0) fl MCH (27.0-31.0) pg MCHC (33.0-37.0) g/dL RDW (11.5-14.5) % Plt Count (130-400) K/uL Sodium (132-148) mmol/l Potassium (3.6-5.0) MMOL/L Chloride (98-107) mmol/L Carbon Dioxide (22-30) mmol/L Anion Gap (10-20) BUN (7-17) mg/dl Creatinine (0.7-1.2) mg/dl Est GFR ( Amer) Est GFR (Non-Af Amer) Random Glucose (65-105) mg/dL Calcium (8.4-10.2) mg/dL Vitamin B12 (239-931) pg/mL Folate ng/mL TSH 3rd Generation (0.46-4.68) mIU/ML RPR (NONREACTIVE) Blood Type A POSITIVE Antibody Screen Negative Crossmatch See Detail BBK History Checked No verified bt Laboratory Results - last 24 hr 01/16/18 01/18/18 01/18/18 20:17 05:45 05:45 WBC RBC Hgb Hct MCV MCH MCHC RDW Plt Count Sodium 131 L Potassium 4.6 Chloride 94 L Carbon Dioxide 27 Anion Gap 15 BUN 13 Creatinine 0.7 Est GFR ( Amer) > 60 Est GFR (Non-Af Amer) > 60 Random Glucose 106 H Calcium 8.3 L Vitamin B12 509 Folate 17.2 TSH 3rd Generation 2.11 RPR Nonreactive Blood Type A POSITIVE Antibody Screen Negative Crossmatch See Detail BBK History Checked No verified bt 01/18/18 05:45 WBC 8.4 RBC 3.65 L Hgb 10.4 L D Hct 30.6 L MCV 83.7 MCH 28.4 MCHC 33.9 RDW 14.1 Plt Count 197 Sodium Potassium Chloride Carbon Dioxide Anion Gap BUN Creatinine Est GFR ( Amer) Est GFR (Non-Af Amer) Random Glucose Calcium Vitamin B12 Folate TSH 3rd Generation RPR Blood Type Antibody Screen Crossmatch BBK History Checked EKG/Cardiology Studies: Cardiology / EKG Studies 01/18/18 ELECTROCARDIOGRAM Stat Comment: Mode Of Transportation: PORTABLE Reason For Exam: post-op Review of Systems - Review of Systems Systems not reviewed;Unavailable: Altered Mental Status Critical Care Progress Note - Extremities/Vascular Does the Patient have a Central Venous Catheter?: No Does the Patient need a Central Venous Catheter?: No Does the Patient have a Ybarra Catheter?: No Does the Patient need a Ybarra Catheter?: No - Nutrition Nutrition: Nutrition Category Date Time Status NPO Diet [DIET] Diets 01/17/18 Dinner Active Assessment/Plan (1) Dementia Current Visit: Yes Status: Acute (2) Hip fracture, left Current Visit: Yes Status: Acute (3) Abnormal EKG Current Visit: No Status: Acute (4) HTN (hypertension) Current Visit: No Status: Chronic Priority: Medium Comment: - controlled with norvasc - Assessment and Plan (Free Text) Assessment: 72 Years old Female with PMHx of Anxiety, HTN, Seizures and dementia Admitted on 01/16 s/p a mechanical fall. Patient sustained left hip fracture Pre-operative ECHO done showed left ventricular systolic function by echocardiogram is well preserved. Today she underwent L THR. Procedure done under Spinal Anesthesia, Patient was successfully extubated Admit to SICU for hemodynamic monitoring, Close monitoring of mental status, consider reintubation if worsening of mental status or rising CO2 level STAT LABS/ABG/CBC,CXR, all source intelligence analyst Respiratory status for Respiratory depression PRN Naloxone for RR<8 NPO until fully awake and can pass the nurse bedside swallow evaluation. IV Hydration with LR @ 50 ml/hr Perioperative Antibiotics with IV Cefazolin X 3 doses Pain control with MORPHIN IV Q4H PRN PT/OT PER ORTHO Monitor urine output BD nebs Q 6H PRN PRN Ondansetron
[2018-01-18 18:56] LABS: ABG ALLEN TEST YES; ARTERIAL BLOOD GAS FIO2 50 %; ARTERIAL BLOOD GAS HCO3 21.8 mmol/L (21-28); ARTERIAL BLOOD GAS O2 CAPACITY 16.3 mL/dL (16-24); ARTERIAL BLOOD GAS O2 CONTENT 16.3 ML/dL (15-23); ARTERIAL BLOOD GAS O2 SAT 99.8 % (95-98); ARTERIAL BLOOD GAS PCO2 56 mm/Hg (35-45); ARTERIAL BLOOD GAS PH 7.24 (7.35-7.45); ARTERIAL BLOOD GAS PO2 131 mm/Hg (80-100); ARTERIAL BLOOD GAS TCO2 25.7 mmol/L (22-28)
[2018-01-18] MEDS: Albuterol-Ipratrop 3 mg / 0.5 (3 ml) UD INH SCH (19:08)
[2018-01-18 19:43] LABS: MEAN CORPUSCULAR HEMOGLOBIN 28.9 pg (27.0-31.0); MEAN CORPUSCULAR HGB CONC 33.5 g/dL (33.0-37.0); RBC 3.78 Mil/uL (3.80-5.20); RED CELL DISTRIBUTION WIDTH 14.3 % (11.5-14.5); WHITE BLOOD COUNT 8.5 K/uL (4.8-10.8)
[2018-01-18 19:48] LABS: MEAN CELL VOLUME 86.3 fl (81.0-99.0)
[2018-01-18 20:20] LABS: BLOOD UREA NITROGEN 10 mg/dl (7-17); CALCIUM 8.4 mg/dL (8.4-10.2); GFR AFRICAN-AMERICAN > 60; GFR NON-AFRICAN AMERICAN > 60
[2018-01-18] MEDS: Sodium Chloride 0.9% 1,000 ML IV SCH (22:34)
[2018-01-19] MEDS: ceFAZolin 1 GM in Sodium Chloride 0.9% 100 ML IVPB SCH ×2 (01:30→09:05)
[2018-01-19 05:13] LABS: BASO % 0.1 % (0.0-2.0); EOS # 0.1 K/uL (0.0-0.7); EOS % 0.5 % (0.0-4.0); HEMOGLOBIN 10.8 g/dL (12.0-16.0); LYMPH # 0.9 K/uL (1.0-4.3); MEAN CELL VOLUME 86.4 fl (81.0-99.0); MEAN CORPUSCULAR HEMOGLOBIN 29.3 pg (27.0-31.0); MEAN PLATELET VOLUME 9.4 fl (7.2-11.7); MONO # 0.9 K/uL (0.0-0.8); NEUT # 7.8 K/uL (1.8-7.0); NEUT % 81.4 % (50.0-75.0); PLATELET COUNT 131 K/uL (130-400); RBC 3.68 Mil/uL (3.80-5.20); RED CELL DISTRIBUTION WIDTH 14.1 % (11.5-14.5); WHITE BLOOD COUNT 9.5 K/uL (4.8-10.8)
[2018-01-19 05:20] LABS: ALBUMIN 2.6 g/dL (3.5-5.0); ALT/SGPT 74 U/L (9-52); AST/SGOT 67 U/L (14-36); BLOOD UREA NITROGEN 15 mg/dl (7-17); CALCIUM 7.9 mg/dL (8.4-10.2); GFR AFRICAN-AMERICAN > 60; GFR NON-AFRICAN AMERICAN > 60
[2018-01-19] MEDS: Sodium Chloride 0.9% 1,000 ML IV SCH ×3 (05:44→16:29)
--- NOTE | 2018-01-19 07:47 | CP.PCM.PN ---
Subjective - Date & Time of Evaluation Date of Evaluation: 01/19/18 Time of Evaluation: 07:46 - Subjective Subjective: Patient seen and examined at bedside comfortable. Pain controlled. No acute events overnight. Objective - Vital Signs/Intake and Output Vital Signs (last 24 hours): Temp Pulse Resp BP Pulse Ox 99.2 F 105 H 23 107/72 96 01/19/18 04:00 01/19/18 06:00 01/19/18 06:00 01/19/18 06:00 01/19/18 06:00 Intake and Output: 01/19/18 01/19/18 06:59 18:59 Intake Total 1100 Output Total 550 Balance 550 - Medications Medications: Current Medications Acetaminophen (Tylenol 325mg Tab) 975 mg PO Q6 PRN PRN Reason: Pain, moderate (4-7) Last Admin: 01/17/18 16:06 Dose: 975 mg Albuterol/Ipratropium (Duoneb 3 Mg/0.5 Mg (3 Ml) Ud) 3 ml INH RTID [facility] Last Admin: 01/18/18 19:08 Dose: Not Given Cefazolin Sodium 1 gm/ Sodium (Chloride) 100 mls @ 100 mls/hr IVPB Q8 MARY PRN Reason: Protocol Stop: 01/19/18 09:59 Last Admin: 01/19/18 01:30 Dose: 100 mls/hr Sodium Chloride (Sodium Chloride 0.9%) 1,000 mls @ 125 mls/hr IV .Q8H [facility] Stop: 01/19/18 22:29 Last Admin: 01/19/18 05:44 Dose: 125 mls/hr Morphine Sulfate (Morphine) 1 mg IVP Q4 PRN PRN Reason: Pain, severe (8-10) - Labs Labs: 01/19/18 04:30 01/19/18 04:30 PT 11.3 Seconds (9.8-13.1) 01/16/18 20:17 INR 1.0 (0.9-1.2) 01/16/18 20:17 APTT 30.0 Seconds (25.6-37.1) 01/16/18 20:17 - Extremities Exam Additional comments: L hip: Dressings clean, dry and intact. ABD pillow intact. mild swelling 2nd to surgery. sensation intact SP/DP/TN. motor intact EHL/FHL/TA/gastroc. pedal pulse intact by doppler. calves soft/NT b/l Assessment and Plan (1) Hip fracture, left Assessment & Plan: Patient is POD #1 s/p L THR, orif interotchanteric fx, ORIF greater trochanteric fx. -pain control -DVT ppx -HGB stable this AM -PT/OT PWB 10% LLE -d/c planning -Case and plan discussed with Dr. Olson Status: Acute
[2018-01-19] MEDS: Albuterol-Ipratrop 3 mg / 0.5 (3 ml) UD INH SCH (07:48)
--- NOTE | 2018-01-19 08:16 | RAD ---
HISTORY: s/p left total hip COMPARISON: Chest radiograph 01/16/2018 FINDINGS: LUNGS: No active pulmonary disease. Left hemidiaphragm is elevated by gaseous distention of the stomach. Gas stool seen distending numerous loops of predominant large-bowel in the upper abdomen. Borderline atelectasis or infiltrate is questioned at the medial base versus crowding of the bronchovascular markings. The latter is favored. No definite left-sided infiltrate. PLEURA: No significant pleural effusion identified, no pneumothorax apparent. CARDIOVASCULAR: Normal. OSSEOUS STRUCTURES: No significant abnormalities. VISUALIZED UPPER ABDOMEN: Normal. OTHER FINDINGS: None. IMPRESSION: Elevation left hemidiaphragm is seen further by distention of the stomach with gas also seen in multiple loops of large bowel in the upper abdomen. Crowding of the bronchovascular markings is favored over infiltrate at the right base medially. Clinically correlate further.
--- NOTE | 2018-01-19 08:22 | RAD ---
PROCEDURE: LEFT HIP WITH PELVIS RADIOGRAPHS HISTORY: s/p L THR COMPARISON: LEFT HIP CT 01/17/2018. TECHNIQUE: Frontal view the pelvis is submitted with a limited frog-leg lateral view left hip. FINDINGS: Patient S seen to be status post left shoulder replacement as therapy for a comminuted intertrochanteric fracture proximal left femur. The acetabular and femoral components appear in good apparent position with the femoral component transfixed by cerclage wires. Compression plate is also seen at the proximal left femur as well. Postoperative changes are identified in local soft tissues including skin gema laterally. No interval fracture, subluxation or dislocation. Diffuse osteopenia suggests osteoporosis with the pelvic ring appearing intact though degenerative changes seen at the sacroiliac and right hip joints once again. Pubic symphysis is intact. Fibroid type calcifications in the central pelvis soft tissues. IMPRESSION: Status post ORIF left hip joint as therapy for complex comminuted fracture proximal left femur as discussed above.
--- NOTE | 2018-01-19 08:24 | CARD ---
APPROVED REPORT EKG Measurement Heart [id number] <Conclusion> Normal sinus rhythm Possible Left atrial enlargement Anterolateral infarct, age undetermined Abnormal ECG
[2018-01-19 08:56] LABS: EOSINOPHIL 1 % (0-7); LYMPHOCYTE 13 % (20-50); MONOCYTE 11 % (0-10); NEUTROPHIL 75 % (42-75); PLATELET ESTIMATE NORMAL (NORMAL); TOTAL CELLS COUNTED 100
[2018-01-19 09:04] LABS: HYPOCHROMIC SLIGHT
[2018-01-19 09:05] LABS: OVALOCYTES SLIGHT
[2018-01-19] MEDS ORDERED: HYDROmorphone 0.5 mg/0.5 ml ISec IVP ONE (09:34)
--- NOTE | 2018-01-19 09:55 | CP.PCM.PN ---
Addendum entered and electronically signed by Ngozi Devi MD 01/19/18 18:30 : Edit: DVT prophylaxis SCD Original Note: <Ngozi Devi - Last Filed: 01/19/18 11:43> Subjective - Date & Time of Evaluation Date of Evaluation: 01/19/18 Time of Evaluation: 07:20 - Subjective Subjective: Pt seen and evaluated at bedside this morning; at bedside. S/p total hip replacement yesterday. Appeared in good spirits, said she was thirsty and asked for water. Otherwise no complaints, appeared comfortable. Objective - Vital Signs/Intake and Output Vital Signs (last 24 hours): Temp Pulse Resp BP Pulse Ox 99.9 F H 119 H 25 H 124/61 95 01/19/18 08:00 01/19/18 08:00 01/19/18 08:00 01/19/18 08:00 01/19/18 08:00 Intake and Output: 01/19/18 01/19/18 06:59 18:59 Intake Total 1100 Output Total 550 Balance 550 - Medications Medications: Current Medications Acetaminophen (Tylenol 325mg Tab) 975 mg PO Q6 PRN PRN Reason: Pain, moderate (4-7) Albuterol/Ipratropium (Duoneb 3 Mg/0.5 Mg (3 Ml) Ud) 3 ml INH RTID MARY Hydromorphone HCl (Dilaudid) 0.5 mg IVP ONCE ONE Stop: 01/19/18 09:35 Cefazolin Sodium 1 gm/ (Dextrose) 100 mls @ 100 mls/hr IVPB Q8 MARY PRN Reason: Protocol Last Admin: 01/19/18 09:06 Dose: Not Given Sodium Chloride (Sodium Chloride 0.9%) 1,000 mls @ 125 mls/hr IV .Q8H MARY Stop: 01/19/18 22:29 Last Admin: 01/19/18 09:06 Dose: 125 mls/hr Morphine Sulfate (Morphine) 1 mg IVP Q4 PRN PRN Reason: Pain, severe (8-10) - Labs Labs: 01/19/18 04:30 01/19/18 04:30 PT 11.3 Seconds (9.8-13.1) 01/16/18 20:17 INR 1.0 (0.9-1.2) 01/16/18 20:17 APTT 30.0 Seconds (25.6-37.1) 01/16/18 20:17 - Constitutional Appears: No Acute Distress - Head Exam Head Exam: NORMAL INSPECTION - Eye Exam Eye Exam: EOMI, Normal appearance Additional comments: conjunctiva not pale - ENT Exam ENT Exam: Mucous Membranes Dry Additional comments: lips dry - Neck Exam Neck Exam: Normal Inspection - Respiratory Exam Respiratory Exam: Wheezes, NORMAL BREATHING PATTERN. absent: Respiratory Distress Additional comments: mild scattered wheezes - Cardiovascular Exam Cardiovascular Exam: REGULAR RHYTHM, +S1, +S2 - GI/Abdominal Exam GI & Abdominal Exam: Soft - Extremities Exam Extremities Exam: Normal Capillary Refill Additional comments: left extremity s/p THR, dressing clean, dry. Left AT pulse appreciated by doppler. Right AT 2+ palpable. - Neurological Exam Neurological Exam: Alert, Awake - Psychiatric Exam Psychiatric exam: Normal Mood - Skin Skin Exam: Intact, Warm Additional comments: pale overall but unchanged from pt's skin color when she got admitted; pt at baseline good capillary refill < 2seconds Assessment and Plan - Assessment and Plan (Free Text) Assessment: 72 yo F, s/p total hip replacement, POD 1. H/H stable, pain controlled. Plan: # Left hip fracture - ortho consult Dr. Olson - s/p THR, POD 1 - pain control w/ 975 mg Q8 PRN acetaminophen for moderate pain - dilaudid 0.5mg Q4 PRN for severe pain - cardiology clearance, consult placed for Dr. Guillen - cleared from cardiology for surgery - H/H stable today s/p transfusions; consider IV venofer, repeat labs (CBC, CMP ) in am # Dementia - psychiatry consult- pt does not have decision making capacity - son is healthcare decision maker; pt's and son agree; pt's son and both in agreement to consent to blood products, son signed for consent - TSH, folate, B12 all wnl, RPR NR # Wheezing on physical exam - asymptomatic - duoneb treatments TID - monitor for acute changes # Diet - regular diet restarted today # DVT prophylaxis - restart tonight <Pankaj Mejia - Last Filed: 01/21/18 06:49> Objective - Vital Signs/Intake and Output Vital Signs (last 24 hours): Temp Pulse Resp BP Pulse Ox 98.5 F 110 H 18 138/68 94 L 01/20/18 23:34 01/20/18 23:34 01/20/18 23:34 01/20/18 23:34 01/20/18 23:34 - Medications Medications: Current Medications Acetaminophen (Tylenol 325mg Tab) 975 mg PO Q8@0500,1300,2100 [facility] Last Admin: 01/21/18 05:09 Dose: Not Given Docusate Sodium (Colace) 100 mg PO DAILY [facility] Last Admin: 01/20/18 12:25 Dose: 100 mg Famotidine (Pepcid) 20 mg PO DAILY [facility] Last Admin: 01/20/18 12:25 Dose: 20 mg Heparin Sodium (Porcine) (Heparin) 5,000 units SC Q8 [facility] PRN Reason: Protocol Last Admin: 01/21/18 00:12 Dose: 5,000 units Iron Sucrose 200 mg/ Sodium (Chloride) 110 mls @ 110 mls/hr IVPB DAILY [facility] Stop: 01/24/18 09:59 Last Admin: 01/20/18 16:35 Dose: 110 mls/hr Ketorolac Tromethamine (Toradol) 15 mg IVP Q6 [facility] Last Admin: 01/21/18 03:57 Dose: 15 mg Tamsulosin HCl (Flomax) 0.4 mg PO ONCE [facility] Last Admin: 01/20/18 21:35 Dose: 0.4 mg - Labs Labs: 01/21/18 04:30 01/21/18 04:30 PT 11.3 Seconds (9.8-13.1) 01/16/18 20:17 INR 1.0 (0.9-1.2) 01/16/18 20:17 APTT 30.0 Seconds (25.6-37.1) 01/16/18 20:17 Attending/Attestation - Attestation I have personally seen and examined this patient.: Yes I have fully participated in the care of the patient.: Yes I have reviewed all pertinent clinical information, including history, physical exam and plan: Yes
--- NOTE | 2018-01-19 10:37 | OP ---
PROCEDURE DATE: 01/18/2018 PREOPERATIVE DIAGNOSES: 1. Displaced, comminuted intertrochanteric, subtrochanteric, and greater trochanteric fracture of the left hip. 2. Primary osteoarthritis of the left hip. 3. Osteopenia of the left femur and hip. OPERATIVE FINDINGS: 1. Displaced, comminuted intertrochanteric, subtrochanteric, and greater trochanteric fracture of the left hip. 2. Primary osteoarthritis of the left hip. 3. Osteopenia of the left femur and hip. POSTOPERATIVE DIAGNOSES: 1. Displaced comminuted intertrochanteric, subtrochanteric, and greater trochanteric fracture of the left femur. 2. Primary osteoarthritis of the left hip. 3. Osteopenia. OPERATION PERFORMED: 1. Left proximal femur replacement, total hip replacement type. 2. Open reduction internal fixation of the proximal femur fracture with cerclage wire. 3. Open reduction internal fixation of the greater trochanteric/intertrochanteric fragment with AO claw construct with cables. 4. Release of iliopsoas tendon. 5. Autograft bone grafting to both the proximal femur and the acetabulum. 6. Computer navigation with the Kraken device. 7. Positioning of fluoroscope interpretation of video images. SURGEON: Mac Olson MD SOCKET PULLER: Cadence Santamaria, certified registered nursing first coat sander. It should be noted that Cadence Santamaria, the certified registered nursing first coat sander, was essential and critical to the completion of this operation at every step, in the exposure and fixation of the components and in the achievement of the operative goal. SECOND HUMAN INTELLIGENCE: , general surgical garment inspector. SPECIMENS REMOVED: Head neck fracture callus, synovium, tendon, bone. ESTIMATED BLOOD LOSS: 600 mL. BLOOD PRODUCTS GIVEN: 3 units of packed cells, 2 units of Cell Saver. DRAINS: No drains. POSTOPERATIVE CONDITION: Fair. TIME OF SURGERY: Time in the room 1410 hours, incision time 1530 hours. OPERATIVE INDICATION: Naida Mar is a 72-year-old woman who sustained a slip and fall in [place] on uneven concrete on Thursday. The patient presented to the Emergency Room at [facility] with her son Marquis and his . Marquis was a culturally competent gleason operator. A CT scan was obtained. The fracture was identified. Various treatment options and algorithm were discussed with the patient and the culturally competent gleason operator her son, Marquis. The possibility of benign neglect was discussed and rejected. Open reduction internal fixation was discussed and rejected because of comminution and the extreme osteopenia. It was felt that the length of operative fixation for the interlocking intertrochanteric nail and the prosthetic replacement were roughly equal. The concept of prosthetic replacement and the concept that his mother is somewhat demented and has a cognitive dysfunction is discussed. The concept that she unable to control her weightbearing, it should be better off with the prosthetic replacement rather than the interlocking nail, which we cutout. OPERATIVE PROCEDURE: After having obtained informed consent in the above fashion, after thoroughly discussing the possibility of mechanical failure, infection, thromboembolic disease, secondary or tertiary surgery, the concept of nerve injury, the concept of blood loss and the fact that she is a [employer], but we have obtained consent for blood transfusion after consultation with Marquis and the patient. After having obtained informed consent in the above fashion, after the satisfactory induction of spinal and general anesthesia by Dr. Mccray, after having identified side, site, and procedure and critical pause/time-out, the left upper extremity was prepped and free draped in usual fashion for upper extremity surgery. This having been accomplished, the patient was placed in a direct lateral decubitus position with the left side up. An incision was described in the fashion described by Tana Middleton as a modification of the Hernandez approach. The skin incision was carried down through the skin and subcutaneous tissue. The fascia reese was divided. The gluteus alice was split. Wound talus was sewn in. The Charnley retractor was placed. The gluteus alice tendon insertion into the posterior aspect of the femur was identified. There was found to be a great deal of comminution. The proximal shaft fragment was identified. The lesser trochanteric fragment was identified as well. The lesser trochanteric fragment is released. Iliopsoas tendon is released from the fragment. The fragment is removed. Great care was taken to release the iliopsoas tendon without injuring the femoral nerve. This having been accomplished, the greater trochanteric osteotomy was accomplished, fragment is grasped with #5 fiber wire and reflected superiorly. This having been accomplished, further comminution and other fragments were removed and carefully salvaged and kept in blood for the procedure for later bone grafting. At this point time, the acetabulum was exposed with anterior and posterior retractor. Computer navigation commenced. Two stab wounds were placed on the iliac crest and two fingerbreadths posterior to the anterior superior iliac spine. The pins were introduced to support the accelerometer optical platform. This having been accomplished, the optical platform was introduced and adjusted. The monitor was accomplished on the computer. The accessibility of positioning was accomplished. Navigation was accomplished on the shaft of the femur and registration was accomplished. This having been accomplished, the acetabulum was identified. The labrum was excised. The pulvinar was excised. Synovectomy was accomplished. Reaming was accomplished after exposure of the acetabulum to 50 mm in approximately 41 degrees of abduction and 18-20 degrees of anteversion. The trial was impacted and the verification of position was offered on computer navigation/optical accelerometer computer navigation. Position of the acetabular component was found to be excellent. At this point in time, the bone grafting to the acetabulum was accomplished and Medacta dual mobility cup was impacted at approximately 41 degrees of abduction and 18 degrees of anteversion. This having been accomplished, the cup was found to be in excellent position and this was verified and the cup position was accomplished with computer navigation. The proximal femur was identified and skeletonized and again, the greater trochanter is removed. Sequential broaching is carried out to a #3 AMIS femoral component. With +3.5 head and 50-mm outer bearing for the dual mobility construct, the hip was reduced and found to be stable in all planes. This having been accomplished, the wound was thoroughly irrigated. The proximal femur was exposed and at this point in time, under the surgeon's direction, fluoroscope was positioned, video images were generated and therapeutic decisions were made therefrom. Again under the surgeon's direction, the fluoroscope was positioned, video images were generated and therapeutic decisions were made therefrom. The position was found to be acceptable. At this point in time, the #3 AMIS stem was impacted and at this point in time reconstruction and open reduction internal fixation of the proximal femur was accomplished. At this point in time, bone graft from the harvested bone autograft was placed. It should be noted that autograft bone grafting to the acetabulum had been accomplished as well. The bone graft was denuded from articular cartilage and the acetabulum was packed prior to implantation of the acetabular component. This having been accomplished, the #3 AMIS stem having been impacted in the appropriate anteversion. The reconstruction of the proximal femur and open reduction internal fixation of the femoral shaft fracture proximally was accomplished. At this point in time, the autograft bone graft for the proximal femur is addended to the posterior aspect of the prosthesis and using a combination of 3 interrupted AO wires and two Synthes cables, the proximal femur undergoes open reduction internal fixation with excellent stability of the construct. This having been accomplished, the +3.5 50-mm outer bearing is affixed to the femoral component. The hip was reduced and found to be stable in all planes. The hip was reduced and found to be stable in flexion and rotation. At this point in time, the greater trochanteric component is placed to the posterior aspect of the greater trochanter. Open reduction internal fixation of the intertrochanteric/greater trochanteric fracture was accomplished using the AO claw. The claw was brought down to the greater trochanter to the proximal femur with some abduction of the femur and fixation was accomplished with the cerclage wires/cables. The cables were introduced around the claw and fixation was accomplished, tightened with the jet pharmacy order entry technician and crimping was accomplished with the crimper. The wound was thoroughly irrigated. It should be noted that autograft bone grafting had been accomplished to the proximal femur in bulk and also autograft bone grafting to the acetabulum. Further autograft bone grafting was accomplished to the proximal femur as well. The wound was thoroughly irrigated. Stability was found to be in all planes. There was no evidence of push-pull. Verification was offered on image intensification views. Open reduction internal fixation of the greater trochanteric fragment and the intertrochanteric fragment had been accomplished near the cables. The wound was thoroughly irrigated and Irrisept is used to prevent infection. Gluteus alice tendon was repaired using interrupted #1 Vicryl. Closure was accomplished using #2 Quill followed by 0 Vicryl, 2-0 Vicryl, and gema for skin. A Angel Barkley compression dressing was applied. It should be noted that no drain was employed. 600 mL of blood loss. The wound was dry at closure. Thrombin and Gelfoam was employed as is a compression dressing. No Hemovac drain is needed. 3 units of packed cells were transfused after consent was obtained and 2 units of intraoperative blood transfusion were accomplished. Postoperative x-ray reveals acceptable position of the construct. Mac Olson MD
--- NOTE | 2018-01-19 12:57 | RAD ---
PROCEDURE: Intraoperative Fluoroscopy. HISTORY: LEFT HIP FINDINGS: Fluoroscopic assistance was provided for left hip fracture repair. Please refer to the operative report from ISABELLE Salazar. Submitted images from the current procedure: 3.0.
[2018-01-19] MEDS ORDERED: Albuterol-Ipratrop 3 mg / 0.5 (3 ml) UD INH SCH (14:00)
--- NOTE | 2018-01-19 14:24 | CARD ---
APPROVED REPORT EKG Measurement Heart [id number] <Conclusion> Sinus tachycardia Anterolateral infarct, age undetermined Abnormal ECG
[2018-01-19] MEDS ORDERED: Sodium Chloride 0.9% 500 ML IV ONE (20:16)
[2018-01-19 21:20] LABS: CALCIUM 7.5 mg/dL (8.4-10.2); GFR AFRICAN-AMERICAN > 60; GFR NON-AFRICAN AMERICAN > 60
[2018-01-19 21:25] LABS: BLOOD UREA NITROGEN 15 mg/dl (7-17)
[2018-01-20 06:39] LABS: BASO % 0.2 % (0.0-2.0); EOS # 0.1 K/uL (0.0-0.7); EOS % 0.5 % (0.0-4.0); HEMOGLOBIN 9.4 g/dL (12.0-16.0); LYMPH # 0.5 K/uL (1.0-4.3); LYMPH % 4.9 % (20.0-40.0); MEAN CELL VOLUME 84.7 fl (81.0-99.0); MEAN CORPUSCULAR HEMOGLOBIN 29.5 pg (27.0-31.0); MEAN CORPUSCULAR HGB CONC 34.9 g/dL (33.0-37.0); MEAN PLATELET VOLUME 9.3 fl (7.2-11.7); MONO # 0.8 K/uL (0.0-0.8); MONO % 7.1 % (0.0-10.0); NEUT # 9.6 K/uL (1.8-7.0); NEUT % 87.3 % (50.0-75.0); NRBC % 0.1 % (0.0-0.0); RBC 3.18 Mil/uL (3.80-5.20); RED CELL DISTRIBUTION WIDTH 14.5 % (11.5-14.5)
[2018-01-20 06:52] LABS: ALB/GLOB RATIO 0.9 (1.0-2.1); ALBUMIN 2.6 g/dL (3.5-5.0); ALT/SGPT 57 U/L (9-52); AST/SGOT 63 U/L (14-36); BLOOD UREA NITROGEN 11 mg/dl (7-17); CALCIUM 7.9 mg/dL (8.4-10.2); GFR AFRICAN-AMERICAN > 60; GFR NON-AFRICAN AMERICAN > 60
--- NOTE | 2018-01-20 08:44 | PN ---
CRITICAL CARE PROGRESS NOTE DATE: 01/19/2018 LOCATION: The patient in ICU, bed 431 TIME SPENT: 35 minutes. SUBJECTIVE: The patient is seen and evaluated at the bedside. Past medical, surgical, and social history reviewed. A 72-year-old female with left hip pain, status post total hip replacement, postop day #1. Estimated blood loss noted, status post transfusion 3 units packed red blood cells, overnight low-grade temperature 99.9, heart rate in the low 120s, and respiratory rate low 20s and normotensive. This morning; alert, awake and follows commands appropriate. Denies some shortness of breath, chest pain, or palpitation. No abdominal discomfort. No diarrhea. No dysuria. Now complaining of pain at the left hip at the site of surgery and swelling of the extremities. OBJECTIVE: VITAL SIGNS: Telemetry sinus rhythm, rate varying from 116 to 126, temperature 98.5, blood pressure 131/60, mean arterial pressure 83, respiratory rate 16 to 20 thoracoabdominal, saturation 95% oxygen 3 L nasal cannula, and end-tidal CO2 of 30. Intake 3600 and output 550, positive balance 3050. Weight 135 pounds. HEAD, EYES, EARS, NOSE, AND THROAT: Pupils are reactive. Conjunctivae pale. Sclerae white. NECK: Supple. Trachea is central. CHEST: Bilateral breath sounds diminished in intensity. Clear to auscultation anteriorly and laterally. HEART: Rhythm regular. S1 and S2 rapid. No S3, S4, gallop. No audible murmur. ABDOMEN: Bowel sounds are present and soft. Liver and spleen not palpable. Bladder not distended. EXTREMITIES: Dressing intact on the left hip. DP palpable, no palpable cord. NEUROLOGIC: Alert and oriented to name, but not to place or time. Moves both upper extremities and right leg. CURRENT MEDICATIONS: Sodium chloride at 125 mL/hour, Dilaudid 0.5 mg IV q.4 hours p.r.n. cefazolin 1 g IV q.8 hours x3 doses, and Tylenol 325 mg. LABORATORY DATA: WBC 9.5, hemoglobin 10.8, hematocrit 31.8, and platelet count 131. Neutrophils 81.4, lymphocytes 9, and monocytes 9. PT 11.3, INR 1, and PTT . SMA-7; sodium 137, potassium 5.1, chloride 102, CO2 of 25, blood urea nitrogen 15, creatinine 0.7, random glucose 99, calcium 7.9, total bilirubin 1.2, AST 67, ALT 74, albumin 2.6, folate 17.2, and TSH 2.1. Urinalysis; RBC 5, WBC 1, and RPR nonreactive. Microbiology, no report. Electrocardiogram; sinus tachycardia, normal electrical axis, and nonspecific ST-T changes. Chest x-ray; no significant pleural effusion, no pneumothorax. Cardiovascular. normal elevation left hemidiaphragm. IMPRESSION AND PLAN: 1. Neurology: Alert and awake, follows commands appropriate, history of early dementia at her baseline. 2. Cardiac: Tachycardia probably related to pain. No prior history of tachyarrhythmia. Echocardiogram done on 01/18/2018 shows normal left ventricular systolic function, ejection fraction 60% to 65%, mild concentric left ventricular hypertrophy, and [id number] hypokinesis of the inferolateral wall and monitor closely. If tachycardia persists, we will add beta-kirk for better control of heart rate, closely monitor hemoglobin. Add iron with multivitamin for anemia and a correction of iron deficiency. 3. Pulmonary: Elevated left hemidiaphragm, etiology unclear. Closely monitor. No sign of respiratory distress noted now. 4. Gastrointestinal: No acute issues. 5. Hematology: Anemia secondary to acute blood loss, status post transfusion packed red blood cells. Closely monitor hemoglobin. Anticoagulation on hold for prophylaxis secondary to recent blood loss. 6. Endocrine: Maintain blood sugar less than 180. 7. Fluids, electrolytes, and nutrition: Hypoalbuminemia chronic. 8. Renal: No acute issues noted. Borderline hyperkalemia. Closely monitor. Gurmeet West MD MTDD
--- NOTE | 2018-01-20 10:15 | CP.PCM.PN ---
Subjective - Date & Time of Evaluation Date of Evaluation: 01/20/18 Time of Evaluation: 09:30 - Subjective Subjective: Patient seen and examined at bedside comfortable. Pain well controlled. Shanti diet well. No acute events overnight or new complaints. Objective - Vital Signs/Intake and Output Vital Signs (last 24 hours): Temp Pulse Resp BP Pulse Ox 98.8 F 110 H 20 153/72 H 96 01/20/18 08:06 01/20/18 08:50 01/20/18 08:06 01/20/18 08:06 01/20/18 08:50 Intake and Output: 01/20/18 01/20/18 06:59 18:59 Intake Total 2255 Output Total 850 Balance 1405 - Medications Medications: Current Medications Acetaminophen (Tylenol 325mg Tab) 975 mg PO Q8@0500,1300,2100 MARY Docusate Sodium (Colace) 100 mg PO DAILY MARY Famotidine (Pepcid) 20 mg PO DAILY MARY Ketorolac Tromethamine (Toradol) 15 mg IM Q6 PRN PRN Reason: Pain, moderate (4-7) Last Admin: 01/20/18 06:04 Dose: 15 mg - Labs Labs: 01/20/18 05:15 01/20/18 05:15 PT 11.3 Seconds (9.8-13.1) 01/16/18 20:17 INR 1.0 (0.9-1.2) 01/16/18 20:17 APTT 30.0 Seconds (25.6-37.1) 01/16/18 20:17 - Back Exam Additional comments: L hip: Dressings clean, dry and intact. ABD pillow intact. mild swelling 2nd to surgery. sensation intact SP/DP/TN. motor intact EHL/FHL/TA/gastroc. pedal pulse intact by doppler. calves soft/NT b/l Assessment and Plan (1) Hip fracture, left Assessment & Plan: Patient is POD #2 s/p L THR, orif interotchanteric fx, ORIF greater trochanteric fx. -pain control -start DVT ppx -PT/OT PWB 10% LLE -d/c planning -Case and plan discussed with Dr. Olson Status: Acute
--- NOTE | 2018-01-20 11:13 | CP.PCM.PN ---
<Ngozi Devi - Last Filed: 01/20/18 13:49> Subjective - Date & Time of Evaluation Date of Evaluation: 01/20/18 Time of Evaluation: 08:00 - Subjective Subjective: Pt was seen and evaluated this morning; sitting up in bed, about to eat breakfast. Reports pain that she rates 3-4/10 in L hip, otherwise has no complaints- no headache, no dizziness, no chest pain, no shortness of breath or difficulty breathing, no GI upset. Objective - Vital Signs/Intake and Output Vital Signs (last 24 hours): Temp Pulse Resp BP Pulse Ox 98.8 F 110 H 20 153/72 H 96 01/20/18 08:06 01/20/18 08:50 01/20/18 08:06 01/20/18 08:06 01/20/18 08:50 Intake and Output: 01/20/18 01/20/18 06:59 18:59 Intake Total 2255 Output Total 850 Balance 1405 - Medications Medications: Current Medications Acetaminophen (Tylenol 325mg Tab) 975 mg PO Q8@0500,1300,2100 MARY Docusate Sodium (Colace) 100 mg PO DAILY MARY Famotidine (Pepcid) 20 mg PO DAILY MARY Ketorolac Tromethamine (Toradol) 15 mg IM Q6 PRN PRN Reason: Pain, moderate (4-7) Last Admin: 01/20/18 06:04 Dose: 15 mg - Labs Labs: 01/20/18 05:15 01/20/18 05:15 PT 11.3 Seconds (9.8-13.1) 01/16/18 20:17 INR 1.0 (0.9-1.2) 01/16/18 20:17 APTT 30.0 Seconds (25.6-37.1) 01/16/18 20:17 - Constitutional Appears: No Acute Distress - Head Exam Head Exam: NORMAL INSPECTION - Eye Exam Eye Exam: Normal appearance - ENT Exam ENT Exam: Mucous Membranes Moist Additional comments: wearing NC - Neck Exam Neck Exam: Full ROM - Respiratory Exam Respiratory Exam: Clear to Ausculation Bilateral, NORMAL BREATHING PATTERN. absent: Respiratory Distress - Cardiovascular Exam Cardiovascular Exam: REGULAR RHYTHM, +S1, +S2 - GI/Abdominal Exam GI & Abdominal Exam: Soft, Normal Bowel Sounds - Extremities Exam Extremities Exam: Normal Capillary Refill. absent: Calf Tenderness, Pedal Edema Additional comments: L hip - dressing in place, clean, dry. Sensation intact in bilateral lower extremities, left AT pulse palpable, able to dorsiflex/plantarflex. - Back Exam Back Exam: NORMAL INSPECTION - Neurological Exam Neurological Exam: Alert, Awake - Psychiatric Exam Psychiatric exam: Normal Mood - Skin Skin Exam: Dry, Normal Color, Warm Assessment and Plan - Assessment and Plan (Free Text) Plan: # Left hip fracture - ortho consult Dr. Olson - s/p THR, POD 2 - ketorolac 15mg IVP Q6; 975 mg Q8 PRN acetaminophen - cardiology clearance, consult placed for Dr. Tiffanie Guillen - cleared from cardiology for surgery - PT/OT - working w/ patient and pt participating in therapy; KIMBERLY recommended upon d/c # Anemia - Hgb 9.4 today - Hematology consult Dr. Rhonda Guillen - IV venofer vs other/additional recommendations # Urinary Retention - pt was retaining urine; duncan placed last night - flomax 0.4mg this am; second dose in pm and plan to remove duncan # Dementia - psychiatry consult- pt does not have decision making capacity - son is healthcare decision maker; pt's and son agree; pt's son and both in agreement to consent to blood products, son signed for consent - TSH, folate, B12 all wnl, RPR NR # Wheezing on physical exam - resolved - monitor for acute changes # Diet - regular diet # Prophylactic measures - heparin 5000U SC Q8, SCD - famotidine 20 mg daily <Norm Estrada - Last Filed: 01/21/18 09:37> Objective - Vital Signs/Intake and Output Vital Signs (last 24 hours): Temp Pulse Resp BP Pulse Ox 97.9 F 96 H 18 115/63 96 01/21/18 07:29 01/21/18 07:29 01/21/18 07:29 01/21/18 07:29 01/21/18 07:29 - Medications Medications: Current Medications Acetaminophen (Tylenol 325mg Tab) 975 mg PO Q8@0500,1300,2100 [facility] Last Admin: 01/21/18 05:09 Dose: Not Given Docusate Sodium (Colace) 100 mg PO DAILY [facility] Last Admin: 01/21/18 08:24 Dose: 100 mg Famotidine (Pepcid) 20 mg PO DAILY [facility] Last Admin: 01/21/18 08:25 Dose: 20 mg Heparin Sodium (Porcine) (Heparin) 5,000 units SC Q8 MARY PRN Reason: Protocol Last Admin: 01/21/18 08:25 Dose: 5,000 units Iron Sucrose 200 mg/ Sodium (Chloride) 110 mls @ 110 mls/hr IVPB DAILY MARY Stop: 01/24/18 09:59 Last Admin: 01/20/18 16:35 Dose: 110 mls/hr Ketorolac Tromethamine (Toradol) 15 mg IVP Q6 [facility] Last Admin: 01/21/18 03:57 Dose: 15 mg Tamsulosin HCl (Flomax) 0.4 mg PO ONCE [facility] Last Admin: 01/20/18 21:35 Dose: 0.4 mg - Labs Labs: 01/21/18 04:30 01/21/18 04:30 PT 11.3 Seconds (9.8-13.1) 01/16/18 20:17 INR 1.0 (0.9-1.2) 01/16/18 20:17 APTT 30.0 Seconds (25.6-37.1) 01/16/18 20:17 Attending/Attestation - Attestation I have personally seen and examined this patient.: Yes I have fully participated in the care of the patient.: Yes I have reviewed all pertinent clinical information, including history, physical exam and plan: Yes
[2018-01-20] MEDS ORDERED: cefTRIAXone (Rocephin) 1 gm Inj IVPB ONE (21:00)
[2018-01-20 21:23] LABS: BASO % 0.2 % (0.0-2.0); EOS # 0.1 K/uL (0.0-0.7); EOS % 0.7 % (0.0-4.0); HEMOGLOBIN 8.5 g/dL (12.0-16.0); LYMPH # 0.6 K/uL (1.0-4.3); LYMPH % 6.2 % (20.0-40.0); MEAN CELL VOLUME 85.6 fl (81.0-99.0); MEAN CORPUSCULAR HEMOGLOBIN 29.2 pg (27.0-31.0); MEAN CORPUSCULAR HGB CONC 34.1 g/dL (33.0-37.0); MEAN PLATELET VOLUME 8.4 fl (7.2-11.7); MONO # 0.6 K/uL (0.0-0.8); MONO % 6.1 % (0.0-10.0); NEUT # 9.1 K/uL (1.8-7.0); NEUT % 86.8 % (50.0-75.0); RBC 2.92 Mil/uL (3.80-5.20); RED CELL DISTRIBUTION WIDTH 14.9 % (11.5-14.5); WHITE BLOOD COUNT 10.5 K/uL (4.8-10.8)
[2018-01-20] MEDS ORDERED: Povidone Iodine Topical 10% Sol ONE (21:50)
[2018-01-21 05:34] LABS: BASO % 0.2 % (0.0-2.0); EOS # 0.1 K/uL (0.0-0.7); HEMOGLOBIN 7.9 g/dL (12.0-16.0); LYMPH # 0.4 K/uL (1.0-4.3); LYMPH % 4.8 % (20.0-40.0); MEAN CELL VOLUME 85.4 fl (81.0-99.0); MEAN CORPUSCULAR HEMOGLOBIN 28.8 pg (27.0-31.0); MEAN CORPUSCULAR HGB CONC 33.7 g/dL (33.0-37.0); MEAN PLATELET VOLUME 8.2 fl (7.2-11.7); MONO # 0.4 K/uL (0.0-0.8); MONO % 4.9 % (0.0-10.0); NEUT # 7.4 K/uL (1.8-7.0); NEUT % 89.1 % (50.0-75.0); NRBC % 0.1 % (0.0-0.0); RBC 2.73 Mil/uL (3.80-5.20); RED CELL DISTRIBUTION WIDTH 14.7 % (11.5-14.5); WHITE BLOOD COUNT 8.3 K/uL (4.8-10.8)
[2018-01-21 05:50] LABS: BLOOD UREA NITROGEN 10 mg/dl (7-17); CALCIUM 7.6 mg/dL (8.4-10.2); GFR AFRICAN-AMERICAN > 60; GFR NON-AFRICAN AMERICAN > 60
--- NOTE | 2018-01-21 06:54 | CP.PCM.PN ---
<Ngozi Devi - Last Filed: 01/21/18 19:18> Subjective - Date & Time of Evaluation Date of Evaluation: 01/21/18 Time of Evaluation: 07:15 - Subjective Subjective: Pt seen and evaluated at bedside this am; s/p total hip replacement, POD3; no acute events overnight. Participated in physical therapy yesterday; duncan was removed this am, s/p 2 doses of flomax yesterday, and pt voided in an appropriate timeframe. Objective - Vital Signs/Intake and Output Vital Signs (last 24 hours): Temp Pulse Resp BP Pulse Ox 98.5 F 110 H 18 138/68 94 L 01/20/18 23:34 01/20/18 23:34 01/20/18 23:34 01/20/18 23:34 01/20/18 23:34 - Medications Medications: Current Medications Acetaminophen (Tylenol 325mg Tab) 975 mg PO Q8@0500,1300,2100 [facility] Last Admin: 01/21/18 05:09 Dose: Not Given Docusate Sodium (Colace) 100 mg PO DAILY [facility] Last Admin: 01/20/18 12:25 Dose: 100 mg Famotidine (Pepcid) 20 mg PO DAILY [facility] Last Admin: 01/20/18 12:25 Dose: 20 mg Heparin Sodium (Porcine) (Heparin) 5,000 units SC Q8 [facility] PRN Reason: Protocol Last Admin: 01/21/18 00:12 Dose: 5,000 units Iron Sucrose 200 mg/ Sodium (Chloride) 110 mls @ 110 mls/hr IVPB DAILY [facility] Stop: 01/24/18 09:59 Last Admin: 01/20/18 16:35 Dose: 110 mls/hr Ketorolac Tromethamine (Toradol) 15 mg IVP Q6 [facility] Last Admin: 01/21/18 03:57 Dose: 15 mg Tamsulosin HCl (Flomax) 0.4 mg PO ONCE [facility] Last Admin: 01/20/18 21:35 Dose: 0.4 mg - Labs Labs: 01/21/18 04:30 01/21/18 04:30 PT 11.3 Seconds (9.8-13.1) 01/16/18 20:17 INR 1.0 (0.9-1.2) 01/16/18 20:17 APTT 30.0 Seconds (25.6-37.1) 01/16/18 20:17 - Constitutional Appears: Non-toxic, No Acute Distress - Head Exam Head Exam: ATRAUMATIC, NORMAL INSPECTION - Eye Exam Eye Exam: Normal appearance - Neck Exam Neck Exam: Full ROM - Respiratory Exam Respiratory Exam: Clear to Ausculation Bilateral, NORMAL BREATHING PATTERN. absent: Respiratory Distress - Cardiovascular Exam Cardiovascular Exam: RRR, +S1, +S2 - GI/Abdominal Exam GI & Abdominal Exam: Soft. absent: Distended, Tenderness - Extremities Exam Additional comments: Sensation intact in bilateral lower extremities, left AT pulse palpable, able to dorsiflex/plantarflex. - Back Exam Back Exam: NORMAL INSPECTION - Neurological Exam Neurological Exam: Alert, Awake - Psychiatric Exam Psychiatric exam: Normal Mood - Skin Skin Exam: Dry, Normal Color, Warm Assessment and Plan - Assessment and Plan (Free Text) Assessment: 72 yo F, s/p THR, POD 4. Plan: # Left hip fracture - ortho consult Dr. Olson - s/p THR, POD 3 - ketorolac 15mg IVP Q6; 975 mg Q8 PRN acetaminophen - cardiology clearance, consult placed for Dr. Tiffanie Guillen - cleared from cardiology for surgery - PT/OT - working w/ patient and pt participating in therapy; KIMBERLY recommended upon d/c, tentatively tomorrow - Incentive spirometry # Anemia - Hgb 7.9 today, 9.4 yest - 1U PRBC today - pt's son is aware/agreeable - Hematology consult Dr. Rhonda Guillen - IV venofer and procrit # Urinary Retention - resolved, pt voided today - s/p 2 doses flomax, duncan discontinued # Dementia - psychiatry consult- pt does not have decision making capacity - son is healthcare decision maker; pt's and son agree; pt's son and both in agreement to consent to blood products, son signed for consent - TSH, folate, B12 all wnl, RPR NR # Wheezing on physical exam - resolved - monitor for acute changes # Diet - regular diet # Prophylactic measures - heparin 5000U SC Q8, SCD - famotidine 20 mg daily <Pankaj Mejia - Last Filed: 01/25/18 06:53> Objective - Vital Signs/Intake and Output Vital Signs (last 24 hours): Temp Pulse Resp BP Pulse Ox 98.6 F 100 H 20 133/66 95 01/22/18 15:32 01/22/18 15:32 01/22/18 15:32 01/22/18 15:32 01/22/18 15:32 - Labs Labs: 01/22/18 06:30 01/21/18 04:30 PT 11.3 Seconds (9.8-13.1) 01/16/18 20:17 INR 1.0 (0.9-1.2) 01/16/18 20:17 APTT 30.0 Seconds (25.6-37.1) 01/16/18 20:17 Attending/Attestation - Attestation I have personally seen and examined this patient.: Yes I have fully participated in the care of the patient.: Yes I have reviewed all pertinent clinical information, including history, physical exam and plan: Yes
--- NOTE | 2018-01-21 09:49 | CP.PCM.CON ---
History of Present Illness - History of Present Illness History of Present Illness: This is a 72 yrs old female who tripped and fell on january 16. she was brought to the [facility] where shhe was found to have an intertrochanteric fracture in the left hip. She had a ORIF done on 01/18 and there was a blood loss of 600 cc, because of the extensive procedure. Her HGB on admission was 10.8gms and has gradually trended down to 7.9 gms today, she is a buddhism and absolutelly refuses a transfusion I was called to see if we could get the count up. PMH of HTN, seizure disorders and was slowly getting forgetful. Does not smoke or drink. Past Patient History - Past Medical History & Family History Past Medical History?: Yes - Past Social History Smoking Status: Never Smoked - CARDIAC Hx Hypertension: Yes - PULMONARY Hx Respiratory Disorders: No Hx Tuberculosis: No - NEUROLOGICAL Hx Seizures: Yes - HEENT Hx HEENT Problems: Yes Hx Glaucoma: Yes - RENAL Hx Chronic Kidney Disease: No - ENDOCRINE/METABOLIC Hx Endocrine Disorders: No - HEMATOLOGICAL/ONCOLOGICAL Hx Human Immunodeficiency Virus (HIV): No - INTEGUMENTARY Hx Dermatological Problems: No - MUSCULOSKELETAL/RHEUMATOLOGICAL Hx Musculoskeletal Disorders: No Hx Falls: No - GASTROINTESTINAL Hx Gastrointestinal Disorders: No - GENITOURINARY/GYNECOLOGICAL Hx Sexually Transmitted Disorders: No - PSYCHIATRIC Hx Anxiety: Yes - SURGICAL HISTORY Hx Surgeries: No - ANESTHESIA Hx Anesthesia: Yes Hx Anesthesia Reactions: No Meds Allergies/Adverse Reactions: Allergies Allergy/AdvReac Type Severity Reaction Status Date / Time No Known Allergies Allergy Verified 07/09/14 22:10 - Medications Medications: Current Medications Acetaminophen (Tylenol 325mg Tab) 975 mg PO Q8@0500,1300,2100 [facility] Last Admin: 01/21/18 05:09 Dose: Not Given Docusate Sodium (Colace) 100 mg PO DAILY [facility] Last Admin: 01/21/18 08:24 Dose: 100 mg Famotidine (Pepcid) 20 mg PO DAILY [facility] Last Admin: 01/21/18 08:25 Dose: 20 mg Heparin Sodium (Porcine) (Heparin) 5,000 units SC Q8 [facility] PRN Reason: Protocol Last Admin: 01/21/18 08:25 Dose: 5,000 units Iron Sucrose 200 mg/ Sodium (Chloride) 110 mls @ 110 mls/hr IVPB DAILY [facility] Stop: 01/24/18 09:59 Last Admin: 01/20/18 16:35 Dose: 110 mls/hr Ketorolac Tromethamine (Toradol) 15 mg IVP Q6 [facility] Last Admin: 01/21/18 03:57 Dose: 15 mg Tamsulosin HCl (Flomax) 0.4 mg PO ONCE [facility] Last Admin: 01/20/18 21:35 Dose: 0.4 mg Physical Exam - Additional Findings Additional findings: Physical exam; Pt is fast asleep, but woke up readily neck; supple, no mass, no h/s megaly Clear: no rales or rhonchi Heart; RSR, no murmur Abd; Soft,no mass,no h/s megaly. Surgical wound healing well. Results - Vital Signs Recent Vital Signs: Last Vital Signs Temp 97.9 F 01/21/18 07:29 Pulse 96 H 01/21/18 07:29 Resp 18 01/21/18 07:29 BP 115/63 01/21/18 07:29 Pulse Ox 96 01/21/18 07:29 - Labs Result Diagrams: 01/21/18 04:30 01/21/18 04:30 Labs: Laboratory Results - last 24 hr 01/20/18 01/21/18 01/21/18 21:19 04:30 04:30 WBC 10.5 8.3 RBC 2.92 L 2.73 L Hgb 8.5 L 7.9 L Hct 25.0 L 23.3 L MCV 85.6 85.4 MCH 29.2 28.8 MCHC 34.1 33.7 RDW 14.9 H 14.7 H Plt Count 160 152 MPV 8.4 8.2 Neut % (Auto) 86.8 H 89.1 H Lymph % (Auto) 6.2 L 4.8 L Real % (Auto) 6.1 4.9 Eos % (Auto) 0.7 1.0 Baso % (Auto) 0.2 0.2 Neut # (Auto) 9.1 H 7.4 H Lymph # (Auto) 0.6 L 0.4 L Real # (Auto) 0.6 0.4 Eos # (Auto) 0.1 0.1 Baso # (Auto) 0.0 0.0 Sodium 134 Potassium 4.1 Chloride 99 Carbon Dioxide 26 Anion Gap 13 BUN 10 Creatinine 0.5 L Est GFR ( Amer) > 60 Est GFR (Non-Af Amer) > 60 Random Glucose 97 Calcium 7.6 L Crossmatch BBK History Checked 01/21/18 09:25 WBC RBC Hgb Hct MCV MCH MCHC RDW Plt Count MPV Neut % (Auto) Lymph % (Auto) Real % (Auto) Eos % (Auto) Baso % (Auto) Neut # (Auto) Lymph # (Auto) Real # (Auto) Eos # (Auto) Baso # (Auto) Sodium Potassium Chloride Carbon Dioxide Anion Gap BUN Creatinine Est GFR ( Amer) Est GFR (Non-Af Amer) Random Glucose Calcium Crossmatch See Detail BBK History Checked Patient has bt Assessment & Plan - Assessment and Plan (Free Text) Assessment: Impression; Left hip fracture. Post op anemia in a pt who is a Jehova's witness. Plan: Plan: Will give pt iv venofer, and give her a couple of doses of procrit. Will monitor CBC - Date & Time Date: 01/21/18 Time: 10:10
--- NOTE | 2018-01-21 11:31 | CP.PCM.PN ---
Subjective - Date & Time of Evaluation Date of Evaluation: 01/21/18 Time of Evaluation: 11:30 - Subjective Subjective: Patient was seen and examined at bedside comfortable. Pain well controlled. Shanti diet. No acute events overnight. Objective - Vital Signs/Intake and Output Vital Signs (last 24 hours): Temp Pulse Resp BP Pulse Ox 97.9 F 96 H 18 115/63 96 01/21/18 07:29 01/21/18 07:29 01/21/18 07:29 01/21/18 07:29 01/21/18 07:29 - Medications Medications: Current Medications Acetaminophen (Tylenol 325mg Tab) 975 mg PO Q8@0500,1300,2100 [facility] Last Admin: 01/21/18 05:09 Dose: Not Given Docusate Sodium (Colace) 100 mg PO DAILY [facility] Last Admin: 01/21/18 08:24 Dose: 100 mg Epoetin Luciano (Procrit) 20,000 unit SC TTS [facility] Famotidine (Pepcid) 20 mg PO DAILY [facility] Last Admin: 01/21/18 08:25 Dose: 20 mg Heparin Sodium (Porcine) (Heparin) 5,000 units SC Q8 [facility] PRN Reason: Protocol Last Admin: 01/21/18 08:25 Dose: 5,000 units Iron Sucrose 200 mg/ Sodium (Chloride) 110 mls @ 110 mls/hr IVPB DAILY [facility] Stop: 01/24/18 09:59 Last Admin: 01/20/18 16:35 Dose: 110 mls/hr Ketorolac Tromethamine (Toradol) 15 mg IVP Q6 [facility] Last Admin: 01/21/18 03:57 Dose: 15 mg Tamsulosin HCl (Flomax) 0.4 mg PO ONCE [facility] Last Admin: 01/20/18 21:35 Dose: 0.4 mg - Labs Labs: 01/21/18 04:30 01/21/18 04:30 PT 11.3 Seconds (9.8-13.1) 01/16/18 20:17 INR 1.0 (0.9-1.2) 01/16/18 20:17 APTT 30.0 Seconds (25.6-37.1) 01/16/18 20:17 - Extremities Exam Additional comments: L hip: Dressings clean, dry and intact. ABD pillow intact. mild swelling 2nd to surgery. sensation intact SP/DP/TN. motor intact EHL/FHL/TA/gastroc. pedal pulse intact. calves soft/NT b/l Assessment and Plan (1) Hip fracture, left Assessment & Plan: Patient is POD #3 s/p L THR, orif interotchanteric fx, ORIF greater trochanteric fx. -HGB decreased this AM, transfuse 1 unit PRBC's -PT/OT PWB 10% LLE -d/c planning -Case and plan discussed with Dr. Olson Status: Acute
[2018-01-21] MEDS ORDERED: Sodium Chloride 0.9% 500 ML IV ONE (18:18)
[2018-01-22 07:15] LABS: HEMOGLOBIN 10.1 g/dL (12.0-16.0); MEAN CELL VOLUME 86.2 fl (81.0-99.0); MEAN CORPUSCULAR HEMOGLOBIN 28.9 pg (27.0-31.0); MEAN CORPUSCULAR HGB CONC 33.6 g/dL (33.0-37.0); RBC 3.49 Mil/uL (3.80-5.20); RED CELL DISTRIBUTION WIDTH 15.1 % (11.5-14.5); WHITE BLOOD COUNT 8.6 K/uL (4.8-10.8)
[2018-01-22] MEDS ORDERED: Epoetin Alfa 20000 UNIT/ML (RENAL DOSE) SC ONE (09:38)
--- NOTE | 2018-01-22 09:54 | CP.PCM.PN ---
Subjective - Date & Time of Evaluation Date of Evaluation: 01/22/18 Time of Evaluation: 09:52 - Subjective Subjective: Pt wqas transfused 1 unit of blood yesterday and her hgb today is 10.1, She may be discharged today. Would give her one dose of procrit and i dose of venofer today, and then continue the po iron at home. Objective - Vital Signs/Intake and Output Vital Signs (last 24 hours): Temp Pulse Resp BP Pulse Ox 98.1 F 97 H 19 151/73 H 98 01/22/18 07:32 01/22/18 07:32 01/22/18 07:32 01/22/18 07:32 01/22/18 07:32 Intake and Output: 01/22/18 01/22/18 06:59 18:59 Intake Total 480 Balance 480 - Medications Medications: Current Medications Acetaminophen (Tylenol 325mg Tab) 975 mg PO Q8@0500,1300,2100 [facility] Last Admin: 01/22/18 05:11 Dose: 975 mg Docusate Sodium (Colace) 100 mg PO DAILY [facility] Last Admin: 01/22/18 08:26 Dose: 100 mg Epoetin Luciano (Procrit) 20,000 unit SC TTS [facility] Famotidine (Pepcid) 20 mg PO DAILY [facility] Last Admin: 01/22/18 08:26 Dose: 20 mg Heparin Sodium (Porcine) (Heparin) 5,000 units SC Q8 [facility] PRN Reason: Protocol Last Admin: 01/22/18 08:25 Dose: 5,000 units Iron Sucrose 200 mg/ Sodium (Chloride) 110 mls @ 110 mls/hr IVPB DAILY [facility] Stop: 01/24/18 09:59 Last Admin: 01/22/18 08:13 Dose: 110 mls/hr Ketorolac Tromethamine (Toradol) 15 mg IVP Q6 PRN PRN Reason: Pain, moderate (4-7) Tamsulosin HCl (Flomax) 0.4 mg PO ONCE [facility] Last Admin: 01/20/18 21:35 Dose: 0.4 mg - Labs Labs: 01/22/18 06:30 01/21/18 04:30 PT 11.3 Seconds (9.8-13.1) 01/16/18 20:17 INR 1.0 (0.9-1.2) 01/16/18 20:17 APTT 30.0 Seconds (25.6-37.1) 01/16/18 20:17
--- NOTE | 2018-01-22 10:07 | CP.PCM.PN ---
Subjective - Date & Time of Evaluation Date of Evaluation: 01/22/18 Time of Evaluation: 08:00 - Subjective Subjective: Patient seen and examined at bedside comfortable. No complaints of pain. Shanti unit of PRBC's well yesterday. No acute events overnight. Objective - Vital Signs/Intake and Output Vital Signs (last 24 hours): Temp Pulse Resp BP Pulse Ox 98.1 F 97 H 19 151/73 H 98 01/22/18 07:32 01/22/18 07:32 01/22/18 07:32 01/22/18 07:32 01/22/18 07:32 Intake and Output: 01/22/18 01/22/18 06:59 18:59 Intake Total 480 Balance 480 - Medications Medications: Current Medications Acetaminophen (Tylenol 325mg Tab) 975 mg PO Q8@0500,1300,2100 [facility] Last Admin: 01/22/18 05:11 Dose: 975 mg Docusate Sodium (Colace) 100 mg PO DAILY [facility] Last Admin: 01/22/18 08:26 Dose: 100 mg Epoetin Luciano (Procrit) 20,000 unit SC TTS [facility] Famotidine (Pepcid) 20 mg PO DAILY [facility] Last Admin: 01/22/18 08:26 Dose: 20 mg Heparin Sodium (Porcine) (Heparin) 5,000 units SC Q8 [facility] PRN Reason: Protocol Last Admin: 01/22/18 08:25 Dose: 5,000 units Iron Sucrose 200 mg/ Sodium (Chloride) 110 mls @ 110 mls/hr IVPB DAILY [facility] Stop: 01/24/18 09:59 Last Admin: 01/22/18 08:13 Dose: 110 mls/hr Ketorolac Tromethamine (Toradol) 15 mg IVP Q6 PRN PRN Reason: Pain, moderate (4-7) Tamsulosin HCl (Flomax) 0.4 mg PO ONCE [facility] Last Admin: 01/20/18 21:35 Dose: 0.4 mg - Labs Labs: 01/22/18 06:30 01/21/18 04:30 PT 11.3 Seconds (9.8-13.1) 01/16/18 20:17 INR 1.0 (0.9-1.2) 01/16/18 20:17 APTT 30.0 Seconds (25.6-37.1) 01/16/18 20:17 - Extremities Exam Additional comments: L hip: Dressings clean, dry and intact. Dressings removed revealing wound clean dry and intact with gema. no drainage. ABD pillow intact. mild swelling and ecchymosis 2nd to surgery. sensation intact SP/DP/TN. motor intact EHL/FHL/TA/gastroc. pedal pulse intact. calves soft/NT b/l Assessment and Plan (1) Hip fracture, left Assessment & Plan: Patient is POD #4 s/p L THR, orif interotchanteric fx, ORIF greater trochanteric fx. -HGB stable this AM -dressings changed this AM -PT/OT PWB 10% LLE -ok to d/c to rehab from ortho s/p -care as per medicine -Case and plan discussed with Dr. Olson Status: Acute
[2018-01-22 10:14] VITALS: O2SAT 95
--- NOTE | 2018-01-22 12:24 | CP.PCM.DIS ---
Provider - Provider Date of Admission: 01/16/18 20:59 Attending physician: Norm Estrada MD Primary care physician: Dr. Mitra Estrada Consults: Orthopedic Surgery- Dr. Olson Hematology - Dr. Rhonda Guillen Cardiology- Dr. Tiffanie Guillen Psychiatry- Dr. Gonzalez Time Spent in preparation of Discharge (in minutes): 45 Diagnosis - Discharge Diagnosis (1) Status post total hip replacement, left Status: Acute Comment: Pt admitted with acute left hip fracture; orthopedist Dr. Olson consulted and total hip replacement done. Currently POD 4, stable from ortho perspetive for discharge to [facility]. (2) Anemia Status: Acute Comment: Pt Hgb 7.9 and received 1U PRBC on POD 3 (previously received 3U POD 0) . Benzene Washer Dr. Rhonda Guillen consulted- pt received venofer, and 1 dose procrit, stable for discharge on oral iron supplementation. (3) Dementia Status: Chronic Comment: Pt evaluated by psychiatrist- established that she does not have decision making capacity. Pt's son and agreed on multiple occasions that pt's son is healthcare decision maker. Hospital Course - Lab Results Lab Results: Micro Results 01/18/18 06:59 Naris MRSA Culture (Admit) - Final MRSA NOT DETECTED Most Recent Lab Values WBC 8.6 K/uL (4.8-10.8) 01/22/18 06:30 RBC 3.49 Mil/uL (3.80-5.20) L 01/22/18 06:30 Hgb 10.1 g/dL (12.0-16.0) L D 01/22/18 06:30 Hct 30.1 % (34.0-47.0) L 01/22/18 06:30 MCV 86.2 fl (81.0-99.0) 01/22/18 06:30 MCH 28.9 pg (27.0-31.0) 01/22/18 06:30 MCHC 33.6 g/dL (33.0-37.0) 01/22/18 06:30 RDW 15.1 % (11.5-14.5) H 01/22/18 06:30 Plt Count 221 K/uL (130-400) 01/22/18 06:30 MPV 8.2 fl (7.2-11.7) 01/21/18 04:30 Neut % (Auto) 89.1 % (50.0-75.0) H 01/21/18 04:30 Lymph % (Auto) 4.8 % (20.0-40.0) L 01/21/18 04:30 Thayer % (Auto) 4.9 % (0.0-10.0) 01/21/18 04:30 Eos % (Auto) 1.0 % (0.0-4.0) 01/21/18 04:30 Baso % (Auto) 0.2 % (0.0-2.0) 01/21/18 04:30 Neut # (Auto) 7.4 K/uL (1.8-7.0) H 01/21/18 04:30 Lymph # (Auto) 0.4 K/uL (1.0-4.3) L 01/21/18 04:30 Thayer # (Auto) 0.4 K/uL (0.0-0.8) 01/21/18 04:30 Eos # (Auto) 0.1 K/uL (0.0-0.7) 01/21/18 04:30 Baso # (Auto) 0.0 K/uL (0.0-0.2) 01/21/18 04:30 Neutrophils % (Manual) 75 % (42-75) 01/19/18 04:30 Lymphocytes % (Manual) 13 % (20-50) L 01/19/18 04:30 Monocytes % (Manual) 11 % (0-10) H 01/19/18 04:30 Eosinophils % (Manual) 1 % (0-7) 01/19/18 04:30 Platelet Estimate Normal (NORMAL) 01/19/18 04:30 Hypochromasia (manual) Slight 01/19/18 04:30 Ovalocytes Slight 01/19/18 04:30 PT 11.3 Seconds (9.8-13.1) 01/16/18 20:17 INR 1.0 (0.9-1.2) 01/16/18 20:17 APTT 30.0 Seconds (25.6-37.1) 01/16/18 20:17 pCO2 56 mm/Hg (35-45) H 01/18/18 18:48 pO2 131 mm/Hg (80-100) H 01/18/18 18:48 HCO3 21.8 mmol/L (21-28) 01/18/18 18:48 ABG pH 7.24 (7.35-7.45) L 01/18/18 18:48 ABG Total CO2 25.7 mmol/L (22-28) 01/18/18 18:48 ABG O2 Saturation 99.8 % (95-98) H 01/18/18 18:48 ABG O2 Content 16.3 ML/dL (15-23) 01/18/18 18:48 ABG Base Excess -4.0 mmol/L (-2.0-3.0) L 01/18/18 18:48 ABG Hemoglobin 12.0 g/dL (11.7-17.4) 01/18/18 18:48 ABG Carboxyhemoglobin 2.8 % (0.5-1.5) H 01/18/18 18:48 POC ABG HHb (Measured) 0.2 % (0.0-5.0) 01/18/18 18:48 ABG Methemoglobin 1.5 % (0.0-3.0) 01/18/18 18:48 ABG O2 Capacity 16.3 mL/dL (16-24) 01/18/18 18:48 Benjamín Test Yes 01/18/18 18:48 A-a O2 Difference -51.0 mm/Hg 01/18/18 18:48 Hgb O2 Saturation 95.5 % (95.0-98.0) 01/18/18 18:48 FiO2 50 % 01/18/18 18:48 Sodium 134 mmol/l (132-148) 01/21/18 04:30 Potassium 4.1 MMOL/L (3.6-5.0) 01/21/18 04:30 Chloride 99 mmol/L (98-107) 01/21/18 04:30 Carbon Dioxide 26 mmol/L (22-30) 01/21/18 04:30 Anion Gap 13 (10-20) 01/21/18 04:30 BUN 10 mg/dl (7-17) 01/21/18 04:30 Creatinine 0.5 mg/dl (0.7-1.2) L 01/21/18 04:30 Est GFR ( Amer) > 60 01/21/18 04:30 Est GFR (Non-Af Amer) > 60 01/21/18 04:30 Random Glucose 97 mg/dL (65-105) 01/21/18 04:30 Calcium 7.6 mg/dL (8.4-10.2) L 01/21/18 04:30 Total Bilirubin 0.6 mg/dl (0.2-1.3) 01/20/18 05:15 AST 63 U/L (14-36) H 01/20/18 05:15 ALT 57 U/L (9-52) H D 01/20/18 05:15 Alkaline Phosphatase 72 U/L (38-126) 01/20/18 05:15 Total Protein 5.3 G/DL (6.3-8.2) L 01/20/18 05:15 Albumin 2.6 g/dL (3.5-5.0) L 01/20/18 05:15 Globulin 2.7 gm/dL (2.2-3.9) 01/20/18 05:15 Albumin/Globulin Ratio 0.9 (1.0-2.1) L 01/20/18 05:15 Vitamin B12 509 pg/mL (239-931) 01/18/18 05:45 Folate 17.2 ng/mL 01/18/18 05:45 TSH 3rd Generation 2.11 mIU/ML (0.46-4.68) 01/18/18 05:45 Urine Color Claribel (YELLOW) 01/16/18 21:15 Urine Clarity Cloudy (Clear) 01/16/18 21:15 Urine pH 6.0 (5.0-8.0) 01/16/18 21:15 Ur Specific Distant 1.019 (1.003-1.030) 01/16/18 21:15 Urine Protein Negative mg/dL (NEGATIVE) 01/16/18 21:15 Urine Glucose (UA) 50 mg/dL (Normal) 01/16/18 21:15 Urine Ketones Negative mg/dL (NEGATIVE) 01/16/18 21:15 Urine Blood Negative (NEGATIVE) 01/16/18 21:15 Urine Nitrate Negative (NEGATIVE) 01/16/18 21:15 Urine Bilirubin Negative (NEGATIVE) 01/16/18 21:15 Urine Urobilinogen 0.2-1.0 mg/dL (0.2-1.0) 01/16/18 21:15 Ur Leukocyte Esterase Neg Nava/uL (Negative) 01/16/18 21:15 Urine RBC (Auto) 5 /hpf (0-3) H 01/16/18 21:15 Urine Microscopic WBC 1 /hpf (0-5) 01/16/18 21:15 Urine Bacteria Rare (<OCC) 01/16/18 21:15 RPR Nonreactive (NONREACTIVE) 01/18/18 05:45 Blood Type A POSITIVE 01/21/18 09:25 Antibody Screen Negative 01/21/18 09:25 Crossmatch See Detail 01/21/18 09:25 BBK History Checked Patient has bt 01/21/18 09:25 - Hospital Course Hospital Course: Naida Mar is a 72 yo F with PMH htn, dementia who was admitted due to acute left hip fracture, s/p total hip replacement, POD 4. Pt has dementia, and was evaluated by psychiatrist Dr. Gonzalez for capacity- was deemed to not have capacity. Family (pt son and ) decided that her son Marquis was to be her decision maker. Pt received preoperative cardiac clearance from security flex utility officer Dr. Tiffanie Guillen. Given drop in hemoglobin and pt and family's preference to limit number of blood transfusions, steward/stewardess deck Dr. Rhonda Guillen was consulted- pt received IV venofer, as well as 1 dose of Procrit, and was cleared for discharge with supplemental oral iron. Pt was cleared today by Dr. Olson for discharge from their perspective. Discharge Exam - Head Exam Head Exam: ATRAUMATIC, NORMAL INSPECTION - Eye Exam Eye Exam: Normal appearance - Neck Exam Neck exam: Full Rom - Respiratory Exam Respiratory Exam: Clear to PA & Lateral. absent: Respiratory Distress - Cardiovascular Exam Cardiovascular Exam: REGULAR RHYTHM, +S1, +S2 - GI/Abdominal Exam GI & Abdominal Exam: Normal Bowel Sounds, Soft. absent: Distended - Extremities Exam Extremities exam: pedal pulses present Additional comments: Dressing on left lower extremity clean, dry, intact. AT pulses palpable. No sensory deficits. - Back Exam Back exam: NORMAL INSPECTION - Neurological Exam Neurological exam: Alert - Psychiatric Exam Psychiatric exam: Normal Affect, Normal Mood - Skin Skin Exam: Dry, Intact, Normal Color, Warm Discharge Plan - Follow Up Plan Condition: STABLE Disposition: REHAB FACILITY/REHAB UNIT Patient education suggested?: Yes Instructions: Total Hip Replacement (DC) Additional Instructions: Please follow up with PMD Dr. Estrada, and orthopedist Dr. Olson after discharge from rehab facility. Referrals: Mac Olson III, MD [Staff Provider] - Norm Estrada MD [Staff Provider] -
[2018-01-22 15:32] VITALS: BP 133/66; PULSE 100; RESP 20; TEMP 98.6
[2018-01-23] MEDS ORDERED: Epoetin Alfa 20000 UNIT/ML (RENAL DOSE) SC SCH (09:00)
== END 2018-01-22 17:59 | DRG 470 ==
LOC: H.ER 20:01 → H.ERHOLD 20:59 → H.MEDSURG1 01-17 00:15 → H.ICU/CCU 01-18 20:51 → H.MEDSURG1 01-19 12:31
PROVIDERS: ADMIT Family Medicine; ATTEND Family Medicine
PROC: 0QS704Z Reposition Left Upper Femur with Internal Fixation Device, Open Approach (ICD-10-PCS; 2018-01-18)
PROC: 8E0YXBF Computer Assisted Procedure of Lower Extremity, With Fluoroscopy (ICD-10-PCS; 2018-01-18)
PROC: 30233N1 Transfusion of Nonautologous Red Blood Cells into Peripheral Vein, Percutaneous Approach (ICD-10-PCS; 2018-01-18)
PROC: 0SRB0JA Replacement of Left Hip Joint with Synthetic Substitute, Uncemented, Open Approach (ICD-10-PCS; principal; 2018-01-18 16:15)
DX: M84.652A Pathological fracture in other disease, left femur, initial encounter for fracture (principal); E87.5 Hyperkalemia; F03.90 Unspecified dementia, unspecified severity, without behavioral disturbance, psychotic disturbance, mood disturbance, and anxiety; D62 Acute posthemorrhagic anemia; G40.909 Epilepsy, unspecified, not intractable, without status epilepticus; M16.12 Unilateral primary osteoarthritis, left hip; F41.9 Anxiety disorder, unspecified; R06.2 Wheezing; M85.852 Other specified disorders of bone density and structure, left thigh; I10 Essential (primary) hypertension; H40.9 Unspecified glaucoma; R33.9 Retention of urine, unspecified